=== PATIENT | male | born 1945 | race Caucasian/White ===

== ENCOUNTER 2016-05-20 08:00 | Outpatient (CLI) | payer MEDICARE, MEDICAID | END 2016-05-20 08:01 | disposition home or self-care (01) | DX: J44.9 Chronic obstructive pulmonary disease, unspecified (principal); Z79.899 Other long term (current) drug therapy; E53.8 Deficiency of other specified B group vitamins; I73.9 Peripheral vascular disease, unspecified ==

== ENCOUNTER 2017-08-01 08:00 | Outpatient (CLI) | payer MEDICARE, MEDICAID ==
[2017-08-01 13:29] LABS: ALBUMIN 4.2 g/dL (3.2-5.5); ALBUMIN/GLOBULIN RATIO 1.1 (1.0-2.2); BASOPHILS # (AUTO) 0.1 10^3/uL (0.0-0.1); BASOPHILS % (AUTO) 1.8 %; BILIRUBIN,TOTAL 0.7 mg/dL (0.2-1.0); CREATININE 0.6 mg/dL (0.6-1.2); EOSINOPHILS # (AUTO) 0.1 10^3/uL (0.0-0.7); HGB - HEMOGLOBIN 15.1 g/dL (14.0-18.0); LYMPHOCYTES # (AUTO) 1.8 10^3/uL (1.5-3.5); LYMPHOCYTES % (AUTO) 31.6 %; MEAN CORPUSCULAR HEMOGLOBIN 33.4 pg (27.0-31.0); MEAN CORPUSCULAR HGB CONC 34.5 g/dL (32.0-36.0); MEAN PLATELET VOLUME 8.2 fL (7.4-11.4); MONOCYTES # (AUTO) 0.4 10^3/uL (0.0-1.0); MONOCYTES % (AUTO) 7.6 %; NEUTROPHILS # (AUTO) 3.2 10^3/uL (1.5-6.6); PLT - PLATELET COUNT 314 10^3/uL (130-450); RED BLOOD COUNT 4.53 10^6/uL (4.70-6.10); RED CELL DISTRIBUTION WIDTH 13.2 % (12.0-15.0); TOTAL PROTEIN 8.2 g/dL (6.7-8.2); WHITE BLOOD COUNT 5.6 x10^3/uL (4.8-10.8)
== END 2017-08-01 08:01 ==
LOC: LAB.R 08:00
PROVIDERS: ATTEND Internal Medicine
DX: E53.8 Deficiency of other specified B group vitamins (principal); C82.90 Follicular lymphoma, unspecified, unspecified site; Z12.5 Encounter for screening for malignant neoplasm of prostate
CPT/HCPCS: 80053; 82607; 85025; G0103; 84153

== ENCOUNTER 2017-12-13 14:59 | Outpatient (CLI) | payer MEDICARE, MEDICAID ==
--- NOTE | 2017-12-13 17:51 | XRAY Report ---
Reason: BACK PAIN,LUMBAR W/RADICULOPATHY Procedure Date: 12/13/2017 Accession Number: [id number] / [id number] Procedure: XR - Thoracic Spine 2 View CPT Code: FULL RESULT: EXAM: THORACIC SPINE RADIOGRAPHY EXAM DATE: 12/13/2017 03:26 PM. CLINICAL HISTORY: No known injury. Radiating pain and numbness down left leg x1 week. Concurrent lumbar spine radiographs. COMPARISON: Chest radiographs 10/21/2014. TECHNIQUE: 2 views. FINDINGS: Alignment: Normal. No spondylolisthesis or scoliosis. Bones: No fractures or bone lesions. Upper thoracic spine not well-visualized on lateral view due to the patient's shoulders Disks: Minimal multilevel disk height loss and minimal anterior endplate lipping, most prominent in the mid thoracic spine, similar to prior. Soft Tissues: Pulmonary hyperexpansion is before suggests possible COPD. Otherwise unremarkable. IMPRESSION: 1. Minimal midthoracic degenerative spondylosis, similar to 2015 exam. 2. Pulmonary hyperexpansion suggests possible COPD as before. RADIA
--- NOTE | 2017-12-14 04:04 | XRAY Report ---
Reason: BACK PAIN Procedure Date: 12/13/2017 Accession Number: [id number] / [id number] Procedure: XR - Lumbar Spine 2 View CPT Code: FULL RESULT: EXAM: LUMBOSACRAL SPINE RADIOGRAPHY EXAM DATE: 12/13/2017 03:26 PM. CLINICAL HISTORY: No known injury. Pain with radiating pain and numbness down left leg x1 week. COMPARISONS: Concurrent thoracic spine radiographs.. TECHNIQUE: 3 views. FINDINGS: Alignment: Normal. No spondylolisthesis or scoliosis. Bones: 5 nonrib-bearing lumbar type vertebral bodies are present. L5 is transitional bilaterally. No fractures or bone lesions. Disks: Moderate disk height loss L4-L5 and L5-S1. Facets: Mild lower lumbar degenerative facet disease. Sacroiliac Joints: Unremarkable. Soft Tissues: Visualized bowel gas pattern is nonobstructive. Minimal vascular calcifications. IMPRESSION: No acute osseous abnormality or malalignment of the lumbar spine with transitional L5 and lower lumbar degenerative spondylosis. RADIA
== END 2017-12-13 15:00 | disposition home or self-care (01) ==
LOC: DI 14:59
PROVIDERS: ATTEND Physician Assistant Medical
DX: M51.34 Other intervertebral disc degeneration, thoracic region (principal); M47.896 Other spondylosis, lumbar region; M51.36 Other intervertebral disc degeneration, lumbar region
CPT/HCPCS: 72070; 72100

== ENCOUNTER 2018-01-05 14:44 | Outpatient (CLI) | payer MEDICARE, MEDICAID ==
--- NOTE | 2018-01-06 16:03 | MRI Report ---
Reason: BACK PAIN,LUMBAR WITH RADICULOPATHY L Procedure Date: 01/05/2018 Accession Number: [id number] / [id number] Procedure: MRI - Lumbar Spine W/O CPT Code: FULL RESULT: EXAM: MRI LUMBAR SPINE WITHOUT CONTRAST, LIMITED EXAM DATE: 01/05/2018 03:29 PM. CLINICAL HISTORY: Low back pain. Left-sided radiculopathy. COMPARISON: None. TECHNIQUE: The patient was not able to complete the exam due to severe back pain and claustrophobia. The exam is very limited and incomplete. Only sagittal T2 weighted images were obtained. FINDINGS: Spinal Canal: The conus terminates at L1-L2. The conus medullaris and cauda equina are unremarkable. Alignment: No scoliosis or spondylolisthesis. Bone Marrow: Five [id number] lumbar vertebral bodies are assumed. There is an approximately 1.1 x 1.2 cm T2 hyperintense lesion at the posterior right paramedian aspect of the L4 vertebral body. The anterior margin of the lesion appears to extend posteriorly into the anterior right paramedian aspect of the spinal canal. Disk Levels/Facets: T12-L1: Unremarkable. L1-L2: Unremarkable. L2-L3: Unremarkable. L3-L4: Small disk bulge. Bilateral facet arthropathy. Mild canal stenosis. Mild to moderate foraminal stenoses. L4-L5: Small disk bulge. There is a 1.2 x 0.6 cm T2 hyperintense extradural mass at the right posterolateral aspect of the spinal canal which may represent a synovial cyst arising from the right facet joint. Bilateral facet arthropathy. L5-S1: Degenerative endplate changes and moderate to severe disk space narrowing. Small disk bulge/osteophyte complex. Mild to moderate left and moderate right foraminal stenoses. Musculature: Normal. No edema or fatty atrophy. Other: The partially visualized retroperitoneum is unremarkable. IMPRESSION: 1. Limited and incomplete exam. 2. An approximately 1.1 x 1.2 cm T2 hyperintense lesion at the posterior right paramedian aspect of the L4 vertebral body which extends slightly posteriorly into the anterior right paramedian aspect of the spinal canal. Recommend further evaluation with a follow-up complete lumbar spine MRI without and with intravenous contrast or CT with intravenous contrast. 3. A 1.2 x 0.6 cm T2 hyperintense extradural mass at the right posterior lateral aspect of the spinal canal at the L4-L5 level. This may represent a synovial cyst arising from the right facet joint. Recommend further evaluation with a follow-up lumbar spine MRI without and with intravenous contrast or CT with intravenous contrast. 4. Multilevel degenerative disk changes. Moderate right and mild to moderate left foraminal stenoses and small disk bulge/osteophyte complex at L5-S1. Mild to moderate foraminal and mild canal stenoses at L3-L4. Comment: The following findings are so common in adults without low back pain that while we report their presence, they must be interpreted with caution and in the context of the clinical situation. (Reference Keikok et al, Spine 2001) Prevalence of findings in patients without low back pain: Disk degeneration (any evidence): 92% Disk desiccation/T2 signal loss: 83% Disk height loss: 56% Disk bulge: 64% Disk protrusion: 32% Annular tear/high intensity zone: 38% RADIA
== END 2018-01-05 14:45 | disposition home or self-care (01) ==
LOC: DI 14:44
PROVIDERS: ATTEND Physician Assistant Medical
DX: M51.16 Intervertebral disc disorders with radiculopathy, lumbar region (principal); M48.061 Spinal stenosis, lumbar region without neurogenic claudication; M25.78 Osteophyte, vertebrae
CPT/HCPCS: 72148

== ENCOUNTER 2018-01-10 16:15 | Outpatient (CLI) | payer MEDICARE, MEDICAID ==
[2018-01-10 18:09] LABS: CALCIUM 8.9 mg/dL (8.5-10.3); CREATININE 0.7 mg/dL (0.6-1.2)
== END 2018-01-10 16:16 | disposition home or self-care (01) ==
LOC: LAB.R 16:15
PROVIDERS: ATTEND Physician Assistant Medical
DX: Z79.899 Other long term (current) drug therapy (principal)
CPT/HCPCS: 80048

== ENCOUNTER 2019-07-11 16:29 | Outpatient (CLI) | payer MEDICARE, MEDICAID ==
[2019-07-11 17:13] LABS: BASOPHILS % (AUTO) 0.4 %; EOSINOPHILS # (AUTO) 0.2 10^3/uL (0.0-0.7); EOSINOPHILS % (AUTO) 3.4 %; HGB - HEMOGLOBIN 13.6 g/dL (14.0-18.0); LYMPHOCYTES # (AUTO) 1.9 10^3/uL (1.5-3.5); LYMPHOCYTES % (AUTO) 26.9 %; MEAN CORPUSCULAR HEMOGLOBIN 33.3 pg (27.0-31.0); MEAN CORPUSCULAR HGB CONC 33.7 g/dL (32.0-36.0); MEAN CORPUSCULAR VOLUME 98.8 fL (80.0-94.0); MEAN PLATELET VOLUME 9.4 fL (7.4-11.4); MONOCYTES # (AUTO) 0.6 10^3/uL (0.0-1.0); MONOCYTES % (AUTO) 8.7 %; NEUTROPHILS # (AUTO) 4.3 10^3/uL (1.5-6.6); NEUTROPHILS % (AUTO) 60.3 %; PLT - PLATELET COUNT 240 10^3/uL (130-450); RED BLOOD COUNT 4.09 10^6/uL (4.70-6.10); WHITE BLOOD COUNT 7.1 x10^3/uL (4.8-10.8)
[2019-07-11 17:18] LABS: CALCIUM 9.3 mg/dL (8.5-10.3); CREATININE 0.8 mg/dL (0.6-1.2)
--- NOTE | 2019-07-12 02:20 | XRAY Report ---
Reason: WHEEZING,COUGH Procedure Date: 07/11/2019 Accession Number: [id number] / [id number] Procedure: XR - Chest 2 View X-Ray CPT Code: 28109 Final Report FULL RESULT: EXAM: CHEST RADIOGRAPHY EXAM DATE: 07/11/2019 04:53 PM CLINICAL HISTORY: Wheezing, cough. COMPARISON: THORACIC SPINE 2 VIEW 12/13/2017 3:13 PM, CT THORAX W/ CONT 08/02/2012 10:19 AM. TECHNIQUE: 2 views. FINDINGS: Lungs/Pleura: Large volumes. No focal pneumonia or overt edema. No pneumothorax or effusion. Mediastinum: Within exam limitations, cardiomediastinal contour is normal. Other: None. IMPRESSION: Question COPD without acute process seen in the chest. RADIA
== END 2019-07-11 16:30 | disposition home or self-care (01) ==
LOC: DI 16:29
PROVIDERS: ATTEND Family Medicine
DX: R06.2 Wheezing (principal); R05 Cough
CPT/HCPCS: 36415; 71046; 80048; 85025

== ENCOUNTER 2020-08-12 09:10 | Outpatient (CLI) | payer MEDICARE, MEDICAID ==
[2020-08-12 09:47] LABS: BASOPHILS % (AUTO) 0.7 %; EOSINOPHILS # (AUTO) 0.1 10^3/uL (0.0-0.7); EOSINOPHILS % (AUTO) 1.9 %; HCT - HEMATOCRIT 37.8 % (42.0-52.0); HGB - HEMOGLOBIN 12.4 g/dL (14.0-18.0); LYMPHOCYTES # (AUTO) 1.3 10^3/uL (1.5-3.5); LYMPHOCYTES % (AUTO) 30.9 %; MEAN CORPUSCULAR HEMOGLOBIN 33.5 pg (27.0-31.0); MEAN CORPUSCULAR HGB CONC 32.8 g/dL (32.0-36.0); MEAN CORPUSCULAR VOLUME 102.2 fL (80.0-94.0); MEAN PLATELET VOLUME 8.9 fL (7.4-11.4); MONOCYTES # (AUTO) 0.4 10^3/uL (0.0-1.0); MONOCYTES % (AUTO) 8.9 %; NEUTROPHILS # (AUTO) 2.4 10^3/uL (1.5-6.6); NEUTROPHILS % (AUTO) 57.4 %; PLT - PLATELET COUNT 234 10^3/uL (130-450); RED CELL DISTRIBUTION WIDTH 13.6 % (12.0-15.0); WHITE BLOOD COUNT 4.2 x10^3/uL (4.8-10.8)
[2020-08-12 10:12] LABS: ALBUMIN 3.3 g/dL (3.2-5.5); ALBUMIN/GLOBULIN RATIO 0.5 (1.0-2.2); ALKALINE PHOSPHATASE 43 IU/L (42-121); ALT ALANINE AMINOTRANSFERASE 16 IU/L (10-60); AST ASPARTATE AMINOTRANSFERASE 23 IU/L (10-42); BILIRUBIN,TOTAL 0.8 mg/dL (0.2-1.0); BUN - BLOOD UREA NITROGEN 13 mg/dL (6-20); CALCIUM 9.6 mg/dL (8.5-10.3); CARBON DIOXIDE - CO2 26 mmol/L (21-32); CHLORIDE 100 mmol/L (101-111); CHOL/HDL RATIO 2.4 (<5.0); CHOLESTEROL 125 mg/dL; CREATININE 0.7 mg/dL (0.6-1.2); GFR - MDRD 110 (>89); GLUCOSE 109 mg/dL (70-100); HDL CHOLESTEROL 53 mg/dL; POTASSIUM 4.3 mmol/L (3.5-5.0); SODIUM 140 mmol/L (135-145); TOTAL PROTEIN 10.2 g/dL (6.7-8.2); TRIGLYCERIDES 31 mg/dL
[2020-08-12 14:15] LABS: THYROID STIMULATING HORMONE 2.58 uIU/mL (0.34-5.60)
== END 2020-08-12 09:11 | disposition home or self-care (01) ==
LOC: LAB 09:10
PROVIDERS: ATTEND Family Medicine
DX: J44.9 Chronic obstructive pulmonary disease, unspecified (principal); R97.20 Elevated prostate specific antigen [PSA]; C85.90 Non-Hodgkin lymphoma, unspecified, unspecified site; R06.09 Other forms of dyspnea
CPT/HCPCS: 36415; 80053; 80061; 83721; 84153; 84443; 85025

== ENCOUNTER 2021-05-14 14:48 | Outpatient (CLI) | payer MEDICARE, MEDICAID ==
--- NOTE | 2021-05-14 16:24 | XRAY Report ---
PROCEDURE: Chest 2 View X-Ray INDICATIONS: SMOKER,HEMOPTYSIS,COUGH,COPD TECHNIQUE: 2 views of the chest. COMPARISON: Chest radiographs 07/11/2019. FINDINGS: Surgical changes and devices: None. Lungs and pleura: No pleural effusions or pneumothorax. Lungs are mildly hyperexpanded. A possible m asslike opacity is seen at the right lung base on the frontal view that was not present on the prior radiographs from 07/11/2019. This finding is not well-visualized on the lateral view and may be second genevieve to superimposed structures. Mediastinum: Mediastinal contours are normal. Heart size is normal. Bones and chest wall: No suspicious bony abnormalities. Soft tissues appear unremarkable. IMPRESSION: 1.Possible new masslike opacity at the right lung base, which is not definitely confirmed on the late ral view. Consider chest CT for further evaluation. 2.Mildly hyperexpanded lungs can be seen in the setting of COPD. Reviewed by: Erich Muñoz MD on 05/14/2021 4:22 PM PST Approved by: Erich Muñoz MD on 05/14/2021 4:22 PM PST Station ID: [id number]
== END 2021-05-14 14:49 | disposition home or self-care (01) ==
LOC: DI 14:48
PROVIDERS: ATTEND Nurse Practitioner Family
DX: R05.9 Cough, unspecified (principal); J44.9 Chronic obstructive pulmonary disease, unspecified; R04.2 Hemoptysis; F17.200 Nicotine dependence, unspecified, uncomplicated; R91.8 Other nonspecific abnormal finding of lung field

== ENCOUNTER 2021-06-16 14:35 | Outpatient (CLI) | payer MEDICARE, MEDICAID ==
--- NOTE | 2021-06-16 18:16 | CT Report ---
PROCEDURE: CHEST WO INDICATIONS: HEMOPTYSIS, ABN CHEST RADIOGRAPH TECHNIQUE: Noncontrast 1mm axial images were acquired from the pulmonary apices to the posterior costophrenic an gles. Axial 5 mm soft tissue kernel reconstructions were performed as well as 8 mm axial MIP and cor onal and sagittal 5 mm reformations. For radiation dose reduction, the following was used: automate d exposure control, adjustment of mA and/or kV according to patient size. COMPARISON: Chest radiographs dated 05/14/2021 and 07/11/2019 FINDINGS: Image quality: Excellent. Lungs and pleura: Corresponding with radiographic findings in the right lung base, there is an irregu lar consolidation/mass measuring 3.0 x 1.8 cm in axial transverse dimension (image 258/series 4). The re is apparent crowding of airways within this consolidation. This abuts the right major fissure. Add itional 8 mm nodule is seen over the medial aspect of the right middle lobe disease imaged to 81/seri es 4). No pleural effusions or pneumothorax. Central and peripheral airways are patent and normal in caliber. Mediastinum: Heart size is normal. No pericardial effusion. There is moderate mediastinal adenopath y. Prominent right hilar lymph nodes. Mild aneurysmal dilatation of the ascending aorta measuring lucy roximately 5 cm in diameter mild atherosclerotic calcifications of the thoracic aorta. Esophagus is normal in caliber. No hiatal hernia. Bones and chest wall: No suspicious bony lesions. No vertebral body compression fractures. Extensiv e bilateral axillary adenopathy. There are several prominent supraclavicular lymph nodes. The thyroid is normal in size and there are no incidental findings. Abdomen: Visualized upper abdominal solid organs and bowel loops appear normal in the absence of con trast. IMPRESSION: 1. Irregular right lower lobe consolidation/mass with apparent crowding of the traversing airways thr ough it. This measures approximately 3.0 x 1.8 cm in size. Findings may explain patient's history of hemoptysis. Although this may represent an acute infectious process, a lung neoplasm not excluded giv en presence of moderate mediastinal adenopathy and prominent right hilar lymph nodes. There are also extensive enlarged bilateral axillary lymph nodes as well as prominent supraclavicular lymph nodes. R ecommend further evaluation with contrast-enhanced CT of the neck to exclude possible head/neck neopl asm. Additionally, recommend correlating for clinical symptoms of infection. If there are findings of infection, recommend short interval follow-up CT in 3 months to document stability versus resolution . 2. Consider sonographic evaluation of axillary lymphadenopathy to better characterize their morpholog y. CLINICAL RECOMMENDATION STATEMENTS: In patients <35 years with an ITN detected on CT, MRI, or extrathyroidal ultrasound, the Committee re commends further evaluation with dedicated thyroid ultrasound if the nodule is "e1 cm and has no susp icious imaging features, and if the patient has normal life expectancy. In patients "e35 years with an ITN detected on CT, MRI, or extrathyroidal ultrasound, the Committee r ecommends further evaluation with dedicated thyroid ultrasound if the nodule is "e1.5 cm and has no s uspicious imaging features, and if the patient has normal life expectancy. (ACR, 2014) Reviewed by: Alan Hernández MD on 06/16/2021 5:15 PM AKST Approved by: Alan Hernández MD on 06/16/2021 5:15 PM AK Station ID: [id number]
== END 2021-06-16 14:36 | disposition home or self-care (01) ==
LOC: DI 14:35
PROVIDERS: ATTEND Nurse Practitioner Family
DX: R91.8 Other nonspecific abnormal finding of lung field (principal); R04.2 Hemoptysis; R59.0 Localized enlarged lymph nodes

== ENCOUNTER 2021-07-08 13:38 | Outpatient (CLI) | payer MEDICARE, MEDICAID ==
[~2021-07-08 13:38] MED LIST: LIDOCAINE-MPF 1% 10 ML AMP ONE
[2021-07-08] MEDS ORDERED: LIDOCAINE-MPF 1% 10 ML AMP SUBQ ONE (15:26)
--- NOTE | 2021-07-08 16:06 | Ultrasound Report ---
PROCEDURE: Needle Bx Lymph Node INDICATIONS: ABNML CT, AXILLARY LYMPHADENOPATHY TECHNIQUE: The indications, alternatives, benefits, risks, and complications of the procedure were e xplained to the patient. Written informed consent was obtained and placed in the chart. Real-time sonography was utilized to choose the site for percutaneous lymph node sampling. The skin was prepped and draped in the usual sterile fashion. 1% lidocaine was infiltrated down to the site o f interest. Serial hypodermic needles were then advanced into the site of interest under direct sono graphic visualization, and serial needle aspirates were obtained. Samples were put in formalin as we ll as lymphoma prep. The needles were then withdrawn; a bandage was applied to the procedure site. COMPARISON: CT chest 06/16/2021 FINDINGS: Sample site(s): Left axilla Needle: 18-gauge Number of passes: 8 Medications: 1% lidocaine for local anaesthesia. Complications: None. IMPRESSION: Successful ultrasound-guided left axillary lymph node fine needle aspiration, with cytology results p ending. Reviewed by: Dede Scott MD on 07/08/2021 4:04 PM PDT Approved by: Dede Scott MD on 07/08/2021 4:04 PM PDT Station ID: [id number]
== END 2021-07-08 13:39 | disposition home or self-care (01) ==
LOC: DI 13:38
PROVIDERS: ATTEND Nurse Practitioner Family
DX: C82.04 Follicular lymphoma grade I, lymph nodes of axilla and upper limb (principal); C82.14 Follicular lymphoma grade II, lymph nodes of axilla and upper limb
CPT/HCPCS: 38505

== ENCOUNTER 2021-07-22 13:22 | Emergency (ER) | payer MEDICARE, MEDICAID ==
--- NOTE | 2021-07-22 13:32 | ED Physician Documentation ---
PD HPI HEENT - Stated complaint Stated Complaint: BLOODY NOSE - Chief complaint Chief Complaint: Heent - Additional information Additional information: Patient is 76-year-old male presenting to the emergency department with 2-week history of recurrent nosebleeds. Reports has been having frequent nosebleeds since coming back from [place] on Vacation 2 Weeks Ago. Denies Blood Thinning Medications. Has Seen His Primary Care Doctor and States That He Had One Area of Bleeding Cauterized. States That He Woke This Morning, Coughed up a Large Blood Clot and Has Had Intermittent Bleeding throughout the Day. Bleeding Did Cease a Few Hours Ago. He Denies Frequent Nosebleeds, Trauma to the Nose,States is not using any nasal sprays at this time. Review of Systems Ten Systems: 10 systems reviewed and negative Constitutional: denies: Fever Eyes: denies: Loss of vision Ears: denies: Loss of hearing Nose: reports: Epistaxis Throat: denies: Dental pain / toothache Cardiac: denies: Chest pain / pressure Respiratory: denies: Dyspnea GI: denies: Abdominal Pain : denies: Dysuria Skin: denies: Rash Musculoskeletal: denies: Neck pain PD PAST MEDICAL HISTORY - Past Medical History Cardiovascular: Other Psych: Other - Present Medications Home Medications: Ambulatory Orders Medication Instructions Recorded Confirmed Oxymetazoline HCl [Afrin] 15 ml NS Q4HR #120 ml 07/22/21 - Allergies Allergies/Adverse Reactions: Allergies Allergy/AdvReac Type Severity Reaction Status Date / Time No Known Drug Allergies Allergy Verified 07/22/21 13:25 - Social History Smoking Status: Former smoker PD ED PE NORMAL - Vitals Vital signs reviewed: Yes - General General: Alert and oriented X 3 - HEENT HEENT: Atraumatic, PERRL, EOMI, Ears normal, Moist mucous membranes, Pharynx benign, Other (No bleeding in the posterior oropharynx, There is dried blood along the left nare. No active bleeding appreciated.) - Neck Neck: Supple, no meningeal sign - Respiratory Respiratory: No respiratory distress, Clear bilaterally - Abdomen Abdomen: Normal bowel sounds, Non distended - Male Male : Deferred - Rectal Rectal: Deferred Results - Vitals Vitals: Vital Signs - 24 hr 07/22/21 13:25 Temperature 36.5 C Heart Rate 90 Respiratory 16 Rate Blood Pressure 123/58 L O2 Saturation 96 Oxygen O2 Source Room air PD MEDICAL DECISION MAKING - ED course Complexity details: d/w patient ED course: Patient is 76-year-old male presenting to the emergency department with 2-week history of recurrent nosebleeds. Afebrile, hemodynamic stable on arrival to the emergency department. He denied blood thinning medications. Physical exam demonstrated dried blood along his left nare without any indications of active bleeding. He does report that he is followed with primary care but has not been referred to ears nose and throat as this time. I will discharge him with a prescription for Afrin and a nasal clip. I did discuss strategies including the use of Afrin and continuous pressure in order to manage nosebleeds at home until he has an opportunity to follow-up with ENT. Otherwise clear return precautions and follow-up instructions given prior to discharge.
[2021-07-22 13:40] VITALS: BP 123/58
== END 2021-07-22 15:55 | disposition home or self-care (01) ==
LOC: ED 13:22
DX: R04.0 Epistaxis (principal)
CPT/HCPCS: 99282

== ENCOUNTER 2021-09-28 10:27 | Day surgery (SDC) | payer MEDICARE, MEDICAID ==
[~2021-09-28 10:27] MED LIST changes: -LIDOCAINE-MPF 1% 10 ML AMP ONE; +LIDOCAINE-MPF 2% 5 ML VIAL ONE; +MIDAZOLAM 2 MG/2 ML VIAL ONE; +PROPOFOL 200 MG/20 ML VIAL IVP ONE; +fentaNYL 100 MCG/2 ML VIAL ONE
[2021-09-28] MEDS ORDERED: BUPIVACAINE 0.5% PF 30 ML VIAL ONE (10:42)
[2021-09-28] MEDS ORDERED: LIDOCAINE 2%-EPI 1:100000 20 ML MDV ONE (10:42)
[2021-09-28] MEDS ORDERED: CEFAZOLIN SODIUM IN 0.9 % NACL 2 GM/50 ML BAG IV ONE (10:47)
--- NOTE | 2021-09-28 10:49 | ANESTHESIA ---
Pre-Anesthesia VS, & Labs - Diagnosis B-cell lymphoma - Procedure port a cath placement Height: 6 ft 2 in - NPO >8 hours - Lab Results Lab results reviewed: Yes Home Medications and Allergies Allergies/Adverse Reactions: Allergies Allergy/AdvReac Type Severity Reaction Status Date / Time No Known Drug Allergies Allergy Verified 09/25/21 12:03 Anes History & Medical History - Anesthetic History Anesthesia Complications: reports: No previous complications Family history of Anesthesia Complications: Denies Family history of Malignant Hyperthermia: Denies - Medical History Cardiovascular: reports: None Pulmonary: reports: Shortness of breath Gastrointestinal: reports: None Urinary: reports: None Musculoskeletal: reports: Chronic back pain Endocrine/Autoimmune: reports: None Smoking Status: Never smoker Psychosocial: reports: Alcohol, Cannabis History of Cancer?: Yes - Surgical History Eyes Ears Nose Throat (EENT): reports: Other Orthopedic: reports: Other Exam General: Alert, Oriented x3, Cooperative Dental: WNL Mouth Openin Fingerbreadth (gould) Neck Mobility: Normal Mallampati classification: II Thyromental Distance: 4-6 cm Respiratory: Lungs clear, Normal breath sounds, No respiratory distress Cardiovascular: Regular rate Neurological: Normal speech Mental/Cognitive Status: Alert/Oriented X3, Normal for patient Cognitive Status: Within normal limits Plan Anesthesia Type: MAC, Total IV Consent for Procedure(s) Verified and Reviewed: Yes Code Status: Attempt Resuscitation ASA classification: 3-Severe systemic disease Is this case an emergency?: No
[2021-09-28] MEDS ORDERED: LACTATED RINGERS 1,000 ML IV ONE (10:50)
[2021-09-28] MEDS ORDERED: PROPOFOL 200 MG/20 ML VIAL IVP ONE (11:14)
[2021-09-28] MEDS ORDERED: LIDOCAINE 2%-EPI 1:100000 20 ML MDV SUBQ ONE ×2 (11:46)
[2021-09-28] MEDS ORDERED: BUPIVACAINE 0.5% PF 30 ML VIAL INFIL ONE (11:47)
[2021-09-28] MEDS ORDERED: BUPIVACAINE 0.5% PF 30 ML VIAL SUBQ ONE (11:47)
[2021-09-28] MEDS ORDERED: LACTATED RINGERS 400 ML IV ONE (11:59)
[2021-09-28 12:24] VITALS: BP 123/72
--- NOTE | 2021-09-28 12:52 | XRAY Report ---
PROCEDURE: Post Port Placement 1V CXR INDICATIONS: post placement, left upper chest TECHNIQUE: One view of the chest was acquired. COMPARISON: 08/24/2021 FINDINGS: Surgical changes and devices: Left chest wall central venous port catheter. Lungs and pleura: No pleural effusions or pneumothorax. Lungs are clear. Mediastinum: Mediastinal contours appear normal. Heart size is normal. Bones and chest wall: No suspicious bony lesions. Overlying soft tissues appear unremarkable. IMPRESSION: No acute cardiopulmonary process demonstrated radiographically. Reviewed by: Eren Serrato MD on 09/28/2021 12:51 PM PDT Approved by: Eren Serrato MD on 09/28/2021 12:51 PM PDT Station ID: [id number]
--- NOTE | 2021-09-28 13:34 | XRAY Report ---
PROCEDURE: OR Port-A-Cath INDICATIONS: Lymphoma TECHNIQUE: 1 intraoperative image of the chest. COMPARISON: Subsequent CXR. FINDINGS: Central venous catheter projecting from the left chest. IMPRESSION: Image guidance provided for port placement. Reviewed by: Jose Cedeno MD on 09/28/2021 1:33 PM PDT Approved by: Jose Cedeno MD on 09/28/2021 1:33 PM PDT Station ID: [id number]
--- NOTE | 2021-09-28 15:38 | ANESTHESIA POST OP EVALUATION ---
Anesthesia Post Eval - Post Anesthesia Eval Vitals: Last Vital Signs Temp 36.1 C L 09/28/21 12:15 Pulse 54 L 09/28/21 12:15 Resp 16 09/28/21 12:15 BP 123/72 09/28/21 12:15 Pulse Ox 96 09/28/21 12:15 CV Function Including HR & BP: Stable Pain Control: Satisfactory Nausea & Vomiting: Negative Mental Status: Baseline Respiratory Status: Airway Patent Hydration Status: Satisfactory Anesthesia Complications: None
--- NOTE | 2021-09-30 08:45 | OPERATIVE REPORT ---
Operative Report - General Procedure Date: 09/28/21 Planned Procedure: Left subclavian port placement for chemotherapy Pre-Op Diagnosis: Lymphoma Procedure Performed: Left subclavian PowerPort placement for chemotherapy Post Op Diagnosis: Lymphoma - Procedure Note Primary Surgeon: Sarah Anesthesia Provider: Izaiah Anesthesia Technique: Local, MAC Pathology: None Estimated Blood Loss (mL): 5 Findings: Port in good position in the SVC Complications: None apparent - Other Other Information/Narrative: After obtaining informed consent, the patient is brought to the operating room and placed in supine position on the operating table. Following successful induction of sedation with monitored anesthesia care and appropriate padding of all bony prominences, the left chest and neck were prepped and draped in the standard surgical fashion. A timeout was held per scope protocol. All elements of the surgical safety checklist were followed before, during, and after the procedure. Following infiltration with local anesthetic to create a field block, the left subclavian vein was accessed in the deltopectoral groove. The J-wire was gently placed into the vein. Fluoroscopy was used to confirm the position of the wire and in the subclavian vein. We anesthetized the existing healed scar in the area around it for placement of the port itself. An incision was created here a nd carried down through the skin and subcutaneous tissue. A pocket was created with blunt dissection. The port tubing was attached to the tunneling device and passed from the access site of the vein into the pocket. It was trimmed to an appropriate length and the port attached. The port was sewn into place in the pocket. The dilator and introducer were then passed over the J-wire that was in the subclavian vein. The J-wire and dilator were removed leaving only the introducer. The tubing was then passed through the introducer and the introducer cracked and removed per solar energy systems engineer's directions. The port was then checked for function and flushed and danelle easily. Additional local anesthetic was applied to the chest wall. The port pocket was closed with interrupted Vicryl sutures and Monocryl stitches were placed in both skin incision sites. All sponge, needle, and instrument counts were correct at the conclusion of the case. Chest x-ray in the postanesthesia care unit revealed the port in good position in the superior vena cava without evidence of pneumothorax.
== END 2021-09-28 10:28 | disposition home or self-care (01) ==
LOC: SDS 10:27
PROVIDERS: ATTEND Surgery
DX: C85.10 Unspecified B-cell lymphoma, unspecified site (principal); J44.9 Chronic obstructive pulmonary disease, unspecified; F17.200 Nicotine dependence, unspecified, uncomplicated
CPT/HCPCS: 36561; C1788; J0690; J7120

== ENCOUNTER 2021-12-22 14:32 | Emergency (ER) | payer MEDICARE, MEDICAID ==
--- NOTE | 2021-12-22 15:22 | ED Physician Documentation ---
PD HPI BACK PAIN - Stated complaint Stated Complaint: LUMBAR PX - Chief complaint Chief Complaint: Back Pain - History obtained from History obtained from: Patient - History of Present Illness Timing - onset: How many weeks ago (has had intermittent low back pain for months but more consistent for few weeks, and then abruptly worse the past few days without apparent injury. 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 Was in pain for back so sent to ER.) Timing - details: Gradual onset (with significant worsening the past few days.), Still present Location: Lower, Right Quality: Pain, Spasm, Aching Associated symptoms: No: Fever, Weakness, Numbness, Incontinent of urine Worsened by: Movement. No: Palpation Contributing factors: Twisting, Cancer (axillary b-cell lymphoma). No: Trauma Similar symptoms before: No diagnosis (he has presumed lumbar disc problem, but no prior imaging/eval.) Recently seen: Clinic Review of Systems Constitutional: denies: Fever, Chills Cardiac: denies: Chest pain / pressure Respiratory: denies: Dyspnea GI: denies: Abdominal Pain, Nausea, Vomiting, Diarrhea : denies: Incontinent Skin: denies: Rash, Lesions Neurologic: denies: Focal weakness, Numbness PD PAST MEDICAL HISTORY - Past Medical History Cardiovascular: None Respiratory: Shortness of breath Neuro: None Endocrine/Autoimmune: None GI: None : None HEENT: Chronic vision loss Psych: Anxiety Musculoskeletal: Chronic back pain Other Past Medical History: lymphoma - Past Surgical History Ortho: Other HEENT: Other - Present Medications Home Medications: Ambulatory Orders Medication Instructions Recorded Confirmed Oxymetazoline HCl [Afrin] 15 ml NS Q4HR #120 ml 07/22/21 11/23/21 Ondansetron Odt [Zofran Odt] 4 mg TL Q6H PRN #30 tab 09/21/21 11/23/21 Prochlorperazine Maleate 10 mg PO Q6HR PRN #30 tablet 09/21/21 11/23/21 oxyCODONE [Roxicodone] 5 mg PO Q4-6H PRN #20 tablet 09/28/21 11/23/21 dexAMETHasone [Decadron] 4 mg PO DAILY #7 tablet 12/22/21 oxyCODONE [Roxicodone] 5 mg PO Q4H PRN #20 tablet 12/22/21 tiZANidine [Zanaflex] 4 mg PO Q8H PRN #25 tablet 12/22/21 - Allergies Allergies/Adverse Reactions: Allergies Allergy/AdvReac Type Severity Reaction Status Date / Time No Known Drug Allergies Allergy Verified 12/22/21 14:44 - Social History Smoking Status: Never smoker PD ED PE NORMAL - Vitals Vital signs reviewed: Yes - General General: Alert and oriented X 3, Well developed/nourished, Other (appears in pain and wanting to lie flat as sitting more painful. ) - Cardiac Cardiac: RRR, No murmur - Respiratory Respiratory: Clear bilaterally - Abdomen Abdomen: Soft, Non tender, Non distended - Back Back: No spinal TTP (tender right lumbar muscles but not focal trigger point per se. No redness/rash. ) - Derm Derm: Normal color, Warm and dry - Extremities Extremities: No edema, No calf tenderness / cord - Neuro Neuro: Alert and oriented X 3, No motor deficit, No sensory deficit, Other (normal patellar reflexes) Results - Vitals Vitals: Oxygen O2 Source Room air - Rads (name of study) lumbar CT Radiology: Prelim report reviewed (no fractures. degenerative changes, particularly L4/5.), See rad report PD MEDICAL DECISION MAKING - ED course Complexity details: reviewed results, re-evaluated patient (improved some with meds here. ), considered differential (low back pain with sciatic radiation but no numbness/weakness. Red flags of duration and acute exac along with age. Got CT to evaluate. ), d/w patient ED course: He came from [facility] after chemo infusion with Port still accessed. Given pain meds (had not gotten any in [facility]). Departure - Departure Disposition: 01 Home, Self Care Clinical Impression: Acute lumbar back pain Qualifiers: Back pain laterality: right Sciatica presence: with sciatica Sciatica laterality: sciatica of right side Qualified Code(s): M54.41 - Lumbago with sciatica, right side Condition: Stable Record reviewed to determine appropriate education?: Yes Follow-Up: Logan Cook MD [Primary Care Provider] - Mario Huizar MD [Provider Admit Priv/Credential] - Prescriptions: dexAMETHasone [Decadron] 4 mg PO DAILY #7 tablet oxyCODONE [Roxicodone] 5 mg PO Q4H PRN #20 tablet PRN Reason: Pain tiZANidine [Zanaflex] 4 mg PO Q8H PRN #25 tablet PRN Reason: Spasms Comments: Heat and gentle stretching for the low back to reduce spasm and stiffness. Massage or chiropractic or such is okay as well. Decadron steroid daily for another week to help with inflammation. Tizanidine muscle relaxant for spasms and stiffness. Your CT scan showed some degenerative changes at the L4-5 level. It did not note a considerable disc protrusion at that level but a mild 1. No signs of bony abnormality such as bone lesions or compression fractures. To this add acetaminophen 5 mg 4 times daily regularly for the next week and then oxycodone every 6 hours if needed for worse pain. I sent your prescriptions to [facility] in [place]. I am prescribing a short course of narcotic pain medication for you. These are potentially dangerous and addictive medications that should be used carefully. These medications may constipate you. Take an gzmh-ery-[id number] stool softener such as docusate twice daily with plenty of water while taking these medications. If you go 24 hours without a bowel movement, take uxrq-gyg-opurhwi MiraLAX, per package instructions. Do not drink or drive while taking these medications. If you received narcotic or sedating medications while in the emergency department do not drive for 24 hours. Store this medication in a safe, secure place and out of reach of children. It is a violation of federal law to give or sell this medication to another person or to use in a manner other than prescribed. The ED will not refill narcotic prescriptions, including prescriptions lost or stolen. You can dispose of unwanted medications at the [facility]'s office or at several pharmacies such as [facility]. Discharge Date/Time: 12/22/21 18:05
[2021-12-22] MEDS ORDERED: HYDROmorphone 1 MG/ML CARPUJECT IVP STA ×2 (15:47→17:45)
[2021-12-22] MEDS ORDERED: methocarbamoL 500 MG TABLET PO STA (15:48)
[2021-12-22] MEDS ORDERED: DEXAMETHASONE 10 MG/ML VIAL IVP STA (15:48)
--- NOTE | 2021-12-22 16:53 | CT Report ---
PROCEDURE: LUMBAR SPINE WO INDICATIONS: lumbar pain for 2-3 weeks. TECHNIQUE: Noncontrast 3 mm thick sections acquired from the T12 level to the sacrum. Sagittal and coronal refo rmats were constructed. For radiation dose reduction, the following was used: automated exposure co ntrol, adjustment of mA and/or kV according to patient size. COMPARISON: None. FINDINGS: Image quality: Excellent. Bones: There is trace L4 on L5 retrolisthesis and intervertebral disc space narrowing and endplate sc lerosis. There is otherwise normal bony alignment. No acute fracture or dislocation. No compression d eformities. Radiolucency with sclerotic margins within the posterior aspect of the L3 vertebral body was likely present on the comparison plain film from 12/13/2017 and is unchanged from the CT dated 08/24. Suspicious bony lesions. Soft tissues: No retroperitoneal masses or hematomas. Visualized aorta is normal in caliber. There are scattered atheromatous calcifications throughout the abdominal aorta. Scattered diverticular out pouchings are visualized throughout the sigmoid colon. No mucosal thickening or pericolonic fat stran ding to suggest acute diverticulitis. The bowel is incompletely visualized. The appendix is likely th in-walled and gas-filled and partially visualized. IMPRESSION: 1. Degenerative change at L4-5. No acute compression deformities of the lumbar spine. 2. No acute intra-abdominal findings where visualized. Diverticulosis. No acute diverticulitis. Proba ble normal appendix where visualized. Reviewed by: Jacinta Knutson MD on 12/22/2021 4:51 PM PDT Approved by: Jacinta Knutson MD on 12/22/2021 4:51 PM PDT Station ID: [id number]
[2021-12-22 18:06] VITALS: BP 148/72
== END 2021-12-22 18:05 | disposition home or self-care (01) ==
LOC: ED 14:32
DX: M54.41 Lumbago with sciatica, right side (principal)
CPT/HCPCS: 72131; 96374; 96375; 96376; 99282; 99284; A9270; J1170

== ENCOUNTER 2023-10-19 09:32 | Outpatient (CLI) | payer MEDICARE, MEDICAID | END 2023-10-19 09:33 | disposition home or self-care (01) | LOC: DI 09:32 | PROVIDERS: ATTEND Internal Medicine | DX: I71.23 Aneurysm of the descending thoracic aorta, without rupture (principal); I35.2 Nonrheumatic aortic (valve) stenosis with insufficiency | CPT/HCPCS: 93307 ==

== ENCOUNTER 2025-02-18 09:13 | Inpatient (IN) ==
--- OUTSIDE RECORDS SUMMARY | 2025-02-18 09:42 | EXTERNAL MEDICAL SUMMARY RPT | Continuity of Care Document ---
Author Organization [facility] Address [address] [place] [id number] Phone Problems date description facility 2025-01-23 11:58 Monoclonal gammopathy [facility] 2025-01-24 00:04 Mon[facility] g[facility]opathy [facility] 2025-01-25 14:37 Follicular lymphoma grade I, lymph nodes of multiple sites [facility] 2025-01-25 14:37 Follicular lymphoma, unspecifie d, unspecified site [facility] 2025-01-25 14:37 Monoclonal gammopathy [facility] 2025-01-25 14:39 Follicular lymphoma grade I, lymph nodes of multiple sites [facility] 2025-01-25 14:39 Follicular lymphoma, unspecifie d, unspecified site [facility] 2025-01-25 14:39 Monoclonal gammopathy [facility] 2025-01-29 13:17 Follicular lymphoma grade I, lymph nodes of multiple sites [facility] 2025-01-29 13:17 Monoclonal gammopathy [facility] 2025-01-29 13:17 Aneurysm of the ascending aorta , without rupture [facility] 2025-01-29 13:17 Encounter for genera l adult medical examination without abnormal findings [facility] 2025-01-30 13:30 Follicular lymphoma grade I, lymph nodes of multiple sites [facility] 2025-01-30 13:30 Monoclonal gammopathy [facility] 2025-01-30 13:30 Aneurysm of the ascending aorta , without rupture [facility] 2025-01-30 13:30 Encounter for genera l adult medical examination without abnormal findings [facility] 2025-02-15 14:10 Follicular lymphoma grade I, lymph nodes of multiple sites [facility] 2025-02-15 14:10 Follicular lymphoma, unspecifie d, unspecified site [facility] 2025-02-15 14:10 Monoclonal gammopathy [facility] Results/Labs test date facility value unit notes Result panel 1 NUCLEATED RED BLOOD CELLS AUTO 2025-01-23 11:58 [facility] 0.0 /100wbc (missing) BASOPHILS # (AUTO) 2025-01-23 11:58 [facility] 0.0 10 3/ul (missing) EOSINOPHILS # (AUTO) 2025-01-23 11:58 [facility] 0.0 10 3/ul (missing) NRBC ABSOLUTE COUNT (AUTO) 2025-01-23 11:58 [facility] 0 .00 x10 3/ul (missing) MONOCYTES # (AUTO) 2025-01-23 11:58 [facility] 0.4 10 3/ul (missing) LYMPHOCYTES # (AUTO) 2025-01-23 11:58 [facility] 0.7 10 3/ul (missing) RED CELL DISTRIBUTION WIDTH 2025-01-23 11:58 [facility] 12.7 % (missing) HGB - HEMOGLOBIN 2025-01-23 11:58 [facility] 13.2 g /dl (missing) PLT - PLATELET COUNT 2025-01-23 11:58 [facility] 208 10 3/ul (missing) MEAN CORPUSCULAR HEMOGLOBIN 2025-01-23 11:58 [facility] 31.6 pg (missing) MEAN CORPUSCULAR HGB CONC 2025-01-23 11:58 [facility] 32 .2 g/dl (missing) NEUTROPHILS # (AUTO) 2025-01-23 11:58 [facility] 4.1 10 3/ul (missing) RED BLOOD COUNT 2025-01-23 11:58 [facility] 4.18 10 6/ul (missing) HCT - HEMATOCRIT 2025-01-23 11:58 [facility] 41.0 % (missing) WHITE BLOOD COUNT 2025-01-23 11:58 [facility] 5.2 x10 3/ul (missing) MEAN PLATELET VOLUME 2025-01-23 11:58 [facility] 8.8 fl (missing) MEAN CORPUSCULAR VOLUME 2025-01-23 11:58 [facility] 98.1 fl (missing) Result panel 2 [id number] 2025-01-23 12:10 [facility] 0.2 g/dl (missing) KAPPA/LAMBDA RATIO SERUM 2025-01-23 12:10 [facility] 0.30 (missing) Performed at: [facility] [address], [place], [place] [id number] Glass Curvature Gauger: Shannon Burroughs MD, Phone: [phone] [id number] 2025-01-23 12:10 [facility] 0.6 g/dl (missing) BETA GLOBULIN 2025-01-23 12:10 [facility] 0.6 g/dl (missing) BILIRUBIN,TOTAL 2025-01-23 12:10 [email or web address] 0.6 mg/dl As of October 2022 testing method has changed, this may include reference ranges. CREATININE 2025-01-23 12:10 [facility] 0.7 mg/dl As of October 2022 testing method has changed, this may include reference ranges. M-SPIKE 2025-01-23 12:10 [facility] 1.0 g/dl (missing) A/G RATIO 2025-01-23 12:10 [facility] 1.4 (missing) (missing) ALBUMIN/GLOBULIN RATIO 2025-01-23 12:10 [facility] 1.4 (missing) (missing) GAMMA GLOBULIN 2025-01-23 12:10 [facility] 1.5 g/dl (missing) CHLORIDE 2025-01-23 12:10 [facility] 101 mmol/l As of October 2022 testing method has changed, this may include reference ranges. GFR - MDRD 2025-01-23 12:10 [facility] 109 (missing) The IDMS-traceable MDRD Study Equation has been validated extensively in and populations between the ages of 18 and 70 with impaired kidney function (eGFR < 60 mL/min/1.73m2) and has shown good performance for patients with all common causes of kidney disease. Although this equation has not been validated for patients older than 70, an MDRD-derived eGFR may still be a useful tool for providers caring for patients older than 70. References: http://www.nkdep.nih .gov/lab-evaluation/ gfr/creatinine-stand ardization, last updated June 2011. GLUCOSE 2025-01-23 12:10 [facility] 114 mg/dl As of October 2022 testing method has changed, this may include reference ranges. SODIUM 2025-01-23 12:10 [facility] 137 mmol/l (missing) IMMUNOGLOBULIN M (IGM) 2025-01-23 12:10 [facility] 1551 mg/dl Results confirmed on dilution. BUN - BLOOD UREA NITROGEN 2025-01-23 12:10 [facility] 16 mg/dl As of October 2022 testing method has changed, this may include reference ranges. GLOBULIN TOTAL 2025-01-23 12:10 [facility] 2.9 g/dl (missing) ALT ALANINE AMINOTRANSFERASE 2025-01-23 12:10 [facility] 21 iu/l As of October 2022 testing method has changed, this may include reference ranges. AST ASPARTATE AMINOTRANSFERASE 2025-01-23 12:10 [facility] 28 iu/l As of October 2022 testing method has changed, this may include reference ranges. LAMBDA FREE LT CHAINS SERUM 2025-01-23 12:10 [facility] 28.2 mg/l (missing) GLOBULIN 2025-01-23 12:10 [facility] 3.0 g/dl (missing) ALBUMIN 2025-01-23 12:10 [facility] 3.9 g/dl (missing) CARBON DIOXIDE - CO2 2025-01-23 12:10 [facility] 30 mmol/l As of October 2022 testing method has changed, this may include reference ranges. POTASSIUM 2025-01-23 12:10 [facility] 4.0 mmol/l As of October 2022 testing method has changed, this may include reference ranges. ALBUMIN 2025-01-23 12:10 [facility] 4.2 g/dl As of October 2022 testing method has changed, this may include reference ranges. IMMUNOGLOBULIN G (IGG) 2025-01-23 12:10 [facility] 472 mg/dl (missing) ANION GAP 2025-01-23 12:10 [facility] 6.0 (missing) (missing) PROTEIN TOTAL 2025-01-23 12:10 [facility] 6.8 g/dl (missing) ALKALINE PHOSPHATASE 2025-01-23 12:10 [facility] 63 iu/l As of October 2022 testing method has changed, this may include reference ranges. TOTAL PROTEIN 2025-01-23 12:10 [facility] 7.2 g/dl As of October 2022 testing method has changed, this may include reference ranges. KAPPA FREE LT CHAINS SERUM 2025-01-23 12:10 [facility] 8.4 mg/l (missing) IMMUNOGLOBULIN A (IGA) 2025-01-23 12:10 [facility] 82 mg/dl (missing) CALCIUM 2025-01-23 12:10 [facility] 9.2 mg/dl As of October 2022 testing method has changed, this may include reference ranges. IMMUNOFIXATION SERUM 2025-01-23 12:10 [facility] Comment (missing) Immunofixation shows IgM monoclonal protein with lambda light chain specificity. PLEASE NOTE 2025-01-23 12:10 [facility] Comment (missing) Protein electrophoresis scan will follow via computer, mail, or lifeguard delivery. Performed at: [address], [place], [place] [id number] Glass Curvature Gauger: Erik Stiles MD, Phone: [phone] Performed at: [facility] [address] [facility] [address], [place], [place] [id number] Glass Curvature Gauger: Shannon Burroughs MD, Phone: [phone] Social History date description facility
--- NOTE | 2025-02-18 10:04 | ED Physician Documentation ---
PD HPI SKIN Stated complaint Stated Complaint: CHEST PORT, BLEEDING Chief complaint Chief Complaint: Wound History obtained from History obtained from: Patient Additional information Additional information: Patient comes to the emergency department chief complaint of pain, redness, swelling, and purulent drainage from his left chest Port-A-Cath site That started yesterday. He has had irritation and flareups of it on and off for the last months, but nothing like this. He states he has a history of lymphoma but has not been receiving chemotherapy or using the port regularly for the last year. He states the only time it gets used is when he goes to oncology and has his blood drawn, the most recent time of which was last week. He denies any fevers or unusual chills, though he states he has been "cold since I was born". He has had some joint aches for the last couple of days. He has not felt ill in any other way. The patient states that his oncologist had encouraged him to keep the port in for blood draws. No other complaints at this time. Meds/Allgy Home Medications Ambulatory Orders Medication Instructions Recorded Confirmed albuterol sulfate 90 mcg/actuation 2 puff inhalation Q 4-6H PRN 02/12/25 02/18/25 aerosol inhaler shortness of breath or wheez ing #8.5 grams fluticasone 250 mcg-salmeterol 50 1 inh inhalation BID #60 ea 02/13/25 02/18/25 mcg/dose blistr powdr for inhalation (Advair Diskus) Allergies Allergies Allergy/AdvReac Type Severity Reaction Status Date / Time No Known Drug Allergies Allergy Verified 11/07/24 15:38 PFSH Active Problems All Active Problems (Updated 02/18/25 @ 14:10 by Kavita Jimenez) Leukopenia (Acute) Neutropenia (Acute) COPD (chronic obstructive pulmonary disease) (Chronic) Cellulitis (Acute) Port-A-Cath in place (Acute) Infected venous access port (Acute) Emphysema lung (Chronic) Dental decay (Chronic) Ascending aortic aneurysm (Chronic) Healthcare maintenance (Chronic) Monoclonal gammopathy (Chronic) Follicular lymphoma (Chronic) Medical History Medical History (Updated 02/18/25 @ 14:10 by Kavita Jimenez) Port or reservoir infection Social History Social History (Updated 02/18/25 @ 10:21 by Denise Bernardo RN) Smoking Status: Current every day smoker Number of Years Smoked: 4 Do you dip or chew tobacco?: No Do you vape?: No Patient requests smoking cessation consult: No Initiate information on smoking cessation: No Living arrangement: At home Marital Status: Domestic Partner Living Condition: With family Support Person: Yes Relationship Notes: Ghazala/ "Bertha" is partner Level: Independent Do you feel safe in your home environment?: No History of physical, verbal, emotional, or financial abuse?: No ETOH Use: None Substance Use: cannabis (any form) Exam Exam Vital Signs: Vital Signs x48h Temp Pulse Resp BP Pulse Ox 02/18/25 11:50 66 18 121/74 97 02/18/25 09:19 36.2 C L 88 18 128/79 97 Constitutional normal general appearance and no apparent distress HENMT normocephalic, head/scalp atraumatic, external nose normal and oral mucous membranes normal Eyes EOMs intact bilaterally Neck/C-Spine visual inspection normal and supple Chest Port-A-Cath in place in left upper chest wall. Erythema noted with mild edema over the Port-A-Cath site and an approximately 4 cm radius around, especially inferiorly. No induration. Mild fluctuance around the edges of the Port-A-Cath. 1 to 2 cc of pus total expressed from a small draining site just superior to the Port-A-Cath. Palpation of the soft tissue around the edges of the Port-A-Cath as well as pressure applied to the Port-A-Cath itself results in drainage from the skin defect. Respiratory breath sounds equal bilaterally, normal respiratory effort and clear to auscultation bilaterally Cardiovascular normal heart rate noted, regular rhythm noted and no edema Gastrointestinal abdomen normal to inspection, abdomen soft to palpation, nontender to palpation and nondistended Genitourinary no CVA tenderness Extremities normal to inspection Neurology Alert, grossly intact Psychiatry mental status grossly normal Skin skin color normal Results Vitals Vitals: Vital Signs - 24 hr 02/18/25 09:19 02/18/25 11:50 Temperature 36.2 C L Temperature Source Temporal Artery Scan Pulse Rate 88 66 Respiratory Rate 18 18 Blood Pressure 128/79 121/74 O2 Saturation 97 97 O2 Source Room air Room air Pain Intensity 9 2 Oxygen O2 Source Room air Labs Labs: Microbiology 02/18/25 11:14 Body Fluid Culture - Preliminary Other - Abscess Laboratory Tests 02/18/25 02/18/25 10:12 11:36 WBC 2.1 L RBC 4.52 L Hgb 14.4 Hct 43.8 MCV 96.9 H MCH 31.9 H MCHC 32.9 RDW 12.1 Plt Count 232 MPV 9.3 Neut # (Auto) Not Reportable Lymph # (Auto) Not Reportable Frio # (Auto) Not Reportable Eos # (Auto) Not Reportable Baso # (Auto) Not Reportable Absolute Nucleated RBC Not Reportable Total Counted 100 Band Neuts % (Manual) 3 Abnorm Lymph % (Manual) 0 Nucleated RBC % Not Reportable Neutrophils # (Manual) 0.8 L Lymphocytes # (Manual) 0.7 L Monocytes # (Manual) 0.5 Eosinophils # (Manual) 0.1 Basophils # (Manual) 0.0 Differential Comment MANUAL DIFFERENTIAL WBC Morphology NORMAL APPEARANCE Platelet Estimate NORMAL (130-450,000) Platelet Morphology NORMAL APPEARANCE RBC Morph Micro Appear NORMAL APPEARANCE Sodium 139 Potassium 3.8 Chloride 101 Carbon Dioxide 28 Anion Gap 10.0 BUN 15 Creatinine 0.6 Estimated GFR (MDRD) 130 Glucose 105 H Calcium 9.2 Total Bilirubin 0.5 AST 17 ALT 19 Alkaline Phosphatase 69 Total Protein 8.1 Albumin 4.1 Globulin 4.0 Albumin/Globulin Ratio 1.0 Lipase 28 PD Medical Decision Making ED course Complexity details: reviewed old records, reviewed results, considered different ial and d/w patient ED course: The patient had some joint aches, but it was not clear if this was related to this Port-A-Cath site infection or not. He otherwise had no other systemic symptoms. He did have a small amount of pus expressible from around the site and certainly did appear to have a cellulitis. There was not a specific area to I&D, however. I did order blood cultures and a CBC and consulted with Dr. Anderson who was on-call for surgery, And she stated she would come and remove the Port-A-Cath in the emergency department. This was done and patient was started on IV vancomycin. I spoke with Dr. Eladio Anderson the hospitalist on-call and he did agree to admit the patient to his service for observation. Discharge Plan Discharge Patient Disposition: 66 [facility] DC/Xfer Condition: Serious Clinical Impression: Infected venous access port Qualifiers: Encounter type: initial encounter Qualified Code(s): T80.219A - Unspecified infection due to central venous catheter, initial encounter Interventions: ED Admission Assessment Last Done: 02/18/25 13:00
[2025-02-18 10:18] LABS: HCT - HEMATOCRIT 43.8 % (42.0-52.0); HGB - HEMOGLOBIN 14.4 g/dL (14.0-18.0); MEAN PLATELET VOLUME 9.3 fL (7.4-11.4); PLT - PLATELET COUNT 232 10^3/uL (130-450); RED CELL DISTRIBUTION WIDTH 12.1 % (12.0-15.0)
[2025-02-18 10:35] LABS: ABNORMAL LYMPHS % (MANUAL) 0 %; BASOPHILS # (MANUAL) 0.0 10^3/uL (0-0.1)
[2025-02-18 11:02] LABS: BAND NEUTROPHILS % (MANUAL) 3 %; BASOPHILS % (MANUAL) 1 %; EOSINOPHILS # (MANUAL) 0.1 10^3/uL (0-0.7); LYMPHOCYTES # (MANUAL) 0.7 10^3/uL (1.5-3.5); LYMPHOCYTES % (MANUAL) 34 %; MONOCYTES # (MANUAL) 0.5 10^3/uL (0.0-1.0); NEUTROPHILS # (MANUAL) 0.8 10^3/uL (1.5-6.6)
[2025-02-18 11:03] LABS: PLATELET ESTIMATE, MANUAL NORMAL (130-450,000) (NORMAL); PLATELET MORPHOLOGY NORMAL APPEARANCE (NORMAL); RBC MORPHOLOGY (MULTIPLE) NORMAL APPEARANCE (NORMAL); WBC MORPHOLOGY (MULTIPLE) NORMAL APPEARANCE (NORMAL)
[2025-02-18 11:59] LABS: ALT ALANINE AMINOTRANSFERASE 19.0 IU/L (10-60); AST ASPARTATE AMINOTRANSFERASE 17.0 IU/L (10-42); BUN - BLOOD UREA NITROGEN 15.0 mg/dL (6-20); CARBON DIOXIDE - CO2 28.0 mmol/L (21-32); CREATININE 0.6 mg/dL (0.6-1.3); GFR - MDRD 130.0 (>89)
--- NOTE | 2025-02-18 12:16 | HISTORY & PHYSICAL EXAMINATION ---
<Statement entered by Tanner Anderson, DO - 02/18/25 16:09> I was present with the medical student on the hospitalist service. I personally verified the history of present illness and performed the physical examination and medical decision making. I have verified the medical students documentation for this encounter and agree with the plan of care below. In addition this is a very pleasant 80-year-old gentleman who is remarkably healthy at baseline. He has a baseline history of COPD and a follicular lymphoma which he has not received treatment for since April of this year. He had an infected port in his left chest that has been causing pain for the last month. Surrounding erythema and irritation. It was pulled by general surgery in the ED and the resulting pocket was highly purulent with some granulation tissue in it implying that this has been brewing for some time. Given the extent of cellulitis surrounding his port site and the risk for systemic infection, he is being monitored vitally under observation for any systemic infection. Blood cultures were drawn in the ED and will be monitored. A aerobic and anaerobic cultures have been sent separately for his port site and the port tip. All things considered, the patient is doing remarkably well. He is not having any systemic symptoms at this time. Given his general stability, we will treat him with oral medications at this time, covering for MRSA given purulent cellulitis. Started on doxycycline 100 mg twice daily, empirically treating for 1 week. If he remains clinically stable on 02/19, he can discharge to complete oral antibiotics outpatient. Will continue to follow his cultures. Surgery still following, they will come in to change his dressing in the morning. He has an attendant leukopenia. His neutrophil count is 800. He is not severely neutropenic. Will continue to monitor with a CBC with differential in the morning. If his neutrophil count continues to decrease, he may need to be monitored further and we may have to discuss with oncology. He is not favoring. Not treating for neutropenic fever at this time. Patient was clear that he is DNR/DNI. He has a partner who is his surrogate decision maker. [place] Patient [place] currently completing a POLST as of this afternoon. Chief Complaint Chief Complaint Chief Complaint: Port site pain History of Present Illness Admitted From Admitted From:: ED History Obtained From Records Reviewed: [facility] History obtained from: EMR, Patient, ED doctor, Surgeon History of Present Illness HPI Comment/Other: Omari Langford is a 80 y/o male with history of follicular lymphoma s/p chemotherapy on maintenance rituximab and COPD, who is admitted for a suspected skin soft tissue infection at his L port site. He arrived to the ED for bleeding and pain around his Port site. Had the Port placed many years ago for treatment of his lymphoma. Had first noticed pain 3 weeks ago, but did not seek treatment. Has not received any antibiotics. Patient reports some relief of pain since the removal of port this morning. Denies any fevers or chills. No headaches, vision changes. No nausea or vomiting. He has otherwise been well without any cough, dyspnea. No chest pain or palpitations. He does endorse chronic low back/ sciatica pain that is not new. He has a few metal screws in his R ankle from many years back. Denies any other hardware or prosthetics. He is accompanied by his Ghazala, who he would like to name his POA. They would like to fill out a POLST form. Opts for DNR/DNI. He denies any alcohol use. Former tobacco smoker of many years. Everyday marijuana smoker. Meds/Allgy Home Medications Ambulatory Orders Medication Instructions Recorded Confirmed albuterol sulfate 90 mcg/actuation 2 puff inhalation Q 4-6H PRN 02/12/25 02/18/25 aerosol inhaler shortness of breath or wheez ing #8.5 grams fluticasone 250 mcg-salmeterol 50 1 inh inhalation BID #60 ea 02/13/25 02/18/25 mcg/dose blistr powdr for inhalation (Advair Diskus) ibuprofen 200 mg tablet (Advil) 200 mg PO TID PRN pain 02/18/25 02/18/25 Allergies Allergies Allergy/AdvReac Type Severity Reaction Status Date / Time No Known Drug Allergies Allergy Verified 11/07/24 15:38 PFSH Active Problems All Active Problems (Updated 02/18/25 @ 14:10 by Kavita Jimenez) Leukopenia (Acute) Neutropenia (Acute) COPD (chronic obstructive pulmonary disease) (Chronic) Cellulitis (Acute) Port-A-Cath in place (Acute) Infected venous access port (Acute) Emphysema lung (Chronic) Dental decay (Chronic) Ascending aortic aneurysm (Chronic) Healthcare maintenance (Chronic) Monoclonal gammopathy (Chronic) Follicular lymphoma (Chronic) Medical History Medical History (Updated 02/18/25 @ 14:10 by Kavita Jimenez) Port or reservoir infection Social History Social History (Updated 02/18/25 @ 10:21 by Denise Bernardo RN) Smoking Status: Current every day smoker Number of Years Smoked: 4 Do you dip or chew tobacco?: No Do you vape?: No Patient requests smoking cessation consult: No Initiate information on smoking cessation: No Living arrangement: At home Marital Status: Domestic Partner Living Condition: With family Support Person: Yes Relationship Notes: Ghazala/ "Bertha" is partner Level: Independent Do you feel safe in your home environment?: No History of physical, verbal, emotional, or financial abuse?: No ETOH Use: None Substance Use: cannabis (any form) Review of Systems Status of ROS: 10 or more systems reviewed and unremarkable except as noted in history and below Exam Exam Vital Signs: Vital Signs x48h Temp Pulse Pulse Resp BP BP Pulse Ox 02/18/25 13:21 36.5 C 71 14 124/92 H 95 02/18/25 12:38 69 18 130/74 96 02/18/25 11:50 66 18 121/74 97 02/18/25 09:19 36.2 C L 88 18 128/79 97 Gen: Thin appearing. Poor dentition. Well nourished and well developed. No acute distress Heent: Normocephalic/atraumatic, normal appearance of external ears and nose. Chest: L chest port is removed and covered with dressing. Surrounding erythema noted, border marked with pen. Slight tenderness to palpation. No evidence of fluctuance. Cardiac: Regular rate and rhythm. No murmurs appreciated. No visible JVP elevation. Equal radial pulses 2+ Pulm: Normal respirations without increased effort. Clear to auscultation throughout without wheezes, rales or rhonchi. Abdomen: Flat, rounded, nontender. No rebound tenderness or guarding. Extremities: Moves all 4 extremities equally. Normal tone. Neuro: Face symmetric, CN II through XII intact grossly. No focal neurologic deficits. Psych: Mood euthymic with congruent affect. Good fund of knowledge. Judgment intact. Conclusion/Plan Problem List (1) Cellulitis: Plan: Appears c/w skin and soft tissue infection of the L chest at port site. Will r/o CRBSI. Patient was non-septic on arrival, without fever or chills. However will still maintain high suspicion given his immunocompromised status with moderate neutropenia. Port has since been removed. Purulence was noted upon removal and sent for culture. Blood cultures are pending. Will start IV therapy with coverage for MRSA. - Will get MRSA swab which has high negative predictive value. - Start doxycycline 100mg BID - Follow skin and blood cultures - Repeat BMP + CBC in am (2) Leukopenia: (3) Follicular lymphoma: Plan: Found to be neutropenic on admission. Isolated leukopenia, WBC down to 2.1. Could be related to infection or his maintenance rituxumab, which is a B-cell depleting immunotherapy. His oncologist is Dr. Villagran. - Monitor CBC in am to ensure stability Qualifiers: Follicular lymphoma grade: grade I Lymphoma site: multiple regions Q ualified Code(s): C82.08 - Follicular lymphoma grade I, lymph nodes of multiple sites (4) COPD (chronic obstructive pulmonary disease): Plan: Not in acute exacerbation. Well controlled on daily Advair BID and albuterol prn. Current marijuana smoker. Quit tobacco many years ago. - Continue home inhalers I spent a total of 48 minutes in the care of this patient today. This time was spent reviewing labs, vital signs, imaging, interviewing and examining the patient, and discussing plan of care with them and their other care providers. Discussed with general surgery and the emergency department to both were quite concerned about the extent of cellulitis surrounding his port site and the risk for systemic infection. I decided to admit this patient to observation. Will treat him with oral antibiotics and have ordered blood cultures. He is at risk for systemic infection which includes the risk of significant morbidity and mortality. Reviewed his vital signs, CBC, neutrophil count, kidney function, liver function, electrolytes. Decision was further made today to not resuscitate in the event of cardiac . Billing [id number] Lab Results Lab results reviewed: Yes 02/18/25 10:12 02/18/25 11:36
--- NOTE | 2025-02-18 12:20 | CONSULTATION NOTE ---
Referring Provider Name of Referring Provider:: ED (Pawel) Consult Date: 02/18/25 Chief Complaint Chief Complaint Chief Complaint: My port hurts History of Present Illness History of Present Illness HPI Comment/Other: The patient presents to the ED today with a 2-day history of acutely worsened pain at his port site. The patient's port a catheter was placed 6 years ago for lymphoma treatment. He has completed lymphoma treatment, and maintenance chemotherapy. The port remains in place for blood draws per his oncologist's request. He currently follows with [place]. [place] [facility] The patient states that he has always felt "a pokey thing" at the lateral aspect of his port incision. He states this has been more difficult to feel over the last couple days as the port has become increasingly red, swollen, and painful. He has also had some purulent discharge over the weekend. When asked how long he has been having difficulty with the port, he states that it has been painful for at least the last month. He denies any fevers or chills. He does complain of chronic back pain. He complains of sharp pain at the port that radiates out superficially and deep toward his back. He denies any nausea or vomiting and would like something to eat. He is accompanied in the ED by his ex partner and friend, "Bertha" who does not live with the patient. [facility] Active Problems All Active Problems (Updated 02/18/25 @ 12:22 by Franky Anderson MD) Port-A-Cath in place (Acute) Infected venous access port (Acute) Emphysema lung (Chronic) Dental decay (Chronic) Ascending aortic aneurysm (Chronic) Healthcare maintenance (Chronic) Monoclonal gammopathy (Chronic) Follicular lymphoma (Chronic) Medical History Medical History (Updated 02/18/25 @ 12:22 by Franky Anderson MD) Port or reservoir infection Social History Social History (Updated 02/18/25 @ 10:21 by Denise Bernardo RN) Smoking Status: Current every day smoker Living arrangement: At home Marital Status: Domestic Partner Living Condition: With family Support Person: Yes Relationship Notes: Ghazala/ "Bertha" is partner Do you feel safe in your home environment?: Yes History of physical, verbal, emotional, or financial abuse?: No ETOH Use: None Substance Use: cannabis (any form) Meds/Allgy Home Medications Ambulatory Orders Medication Instructions Recorded Confirmed albuterol sulfate 90 mcg/actuation 2 puff inhalation Q 4-6H PRN 02/12/25 aerosol inhaler shortness of breath or wheez ing #8.5 grams fluticasone 250 mcg-salmeterol 50 1 inh inhalation BID #60 ea 02/13/25 mcg/dose blistr powdr for inhalation (Advair Diskus) Allergies Allergies Allergy/AdvReac Type Severity Reaction Status Date / Time No Known Drug Allergies Allergy Verified 11/07/24 15:38 Results Lab Results 02/18/25 10:12 02/18/25 11:36 Other Lab Results: Lab Results x24hrs 02/18/25 02/18/25 Range/Units 11:36 10:12 WBC 2.1 L (4.8-10.8) x10^3/uL RBC 4.52 L (4.70-6.10) 10^6/uL Hgb 14.4 (14.0-18.0) g/dL Hct 43.8 (42.0-52.0) % MCV 96.9 H (80.0-94.0) fL MCH 31.9 H (27.0-31.0) pg MCHC 32.9 (32.0-36.0) g/dL RDW 12.1 (12.0-15.0) % Plt Count 232 (130-450) 10^3/uL MPV 9.3 (7.4-11.4) fL Neut # (Auto) Not Reportable Lymph # (Auto) Not Reportable [place] # (Auto) Not Reportable Eos # (Auto) Not Reportable Baso # (Auto) Not Reportable Absolute Nucleated RBC Not Reportable Total Counted 100 Band Neuts % (Manual) 3 (0 - 10) % Abnorm Lymph % (Manual) 0 % Nucleated RBC % Not Reportable Neutrophils # (Manual) 0.8 L (1.5-6.6) 10^3/uL Lymphocytes # (Manual) 0.7 L (1.5-3.5) 10^3/uL Monocytes # (Manual) 0.5 (0.0-1.0) 10^3/uL Eosinophils # (Manual) 0.1 (0-0.7) 10^3/uL Basophils # (Manual) 0.0 (0-0.1) 10^3/uL Differential Comment MANUAL DIFFERENTIAL WBC Morphology NORMAL APPEARANCE (NORMAL) Platelet Estimate NORMAL (130-450,000) (NORMAL) Platelet Morphology NORMAL APPEARANCE (NORMAL) RBC Morph Micro Appear NORMAL APPEARANCE (NORMAL) Sodium 139 (135-145) mmol/L Potassium 3.8 (3.5-4.5) mmol/L Chloride 101 (101-111) mmol/L Carbon Dioxide 28 (21-32) mmol/L Anion Gap 10.0 (6-13) BUN 15 (6-20) mg/dL Creatinine 0.6 (0.6-1.3) mg/dL Estimated GFR (MDRD) 130 (>89) Glucose 105 H (74-104) mg/dL Calcium 9.2 (8.5-10.3) mg/dL Total Bilirubin 0.5 (0.2-1.0) mg/dL AST 17 (10-42) IU/L ALT 19 (10-60) IU/L Alkaline Phosphatase 69 (42-121) IU/L Total Protein 8.1 (6.4-8.9) g/dL Albumin 4.1 (3.2-5.5) g/dL Globulin 4.0 (2.1-4.2) g/dL Albumin/Globulin Ratio 1.0 (1.0-2.2) Lipase 28 (11-82) U/L Other Other Results/Comments: Blood cx ordered Review of Systems Status of ROS: 10 or more systems reviewed and unremarkable except as noted in history and below Exam Exam Vital Signs: Vital Signs x48h Temp Pulse Resp BP Pulse Ox 02/18/25 11:50 66 18 121/74 97 02/18/25 09:19 97.2 F L 88 18 128/79 97 GEN: Moderate distress due to pain, appears stated age, alert and oriented HEENT: NCAT, MMM, EOMI, portacatheter is grossly infected with 10 x 15 cm of surrounding erythema and edema. There is a small opening superior to the port that is draining purulent fluid. The entire area is exquisitely tender to palpation. NEURO: CN II-XII grossly intact, no obvious focal deficits, poor historian CV: RRR PULM: Nonlabored, on room air ABD: soft, scaphoid abdomen, non tender, no rebound or guarding CIRCULATORY: no clubbing, cyanosis, or edema SKIN: no lesions appreciated, except as listed above LYMPH: no obvious lymphadenopathy MSK: 4/4 strength in all extremities PSYCH: Affect is appropriate Conclusion/Plan Problem List (1) Infected venous access port: Qualifiers: Encounter type: initial encounter Qualified Code(s): T80.219A - Unspecified infection due to central venous catheter, initial encounter (2) Port-A-Cath in place: Plan This is an 80-year-old gentleman with: 1. infected portacatheter - I removed the port in the ED today (documented separately) - wet to dry gauze wick in place, with Mepilex dressing. Change dressing daily and irrigate with NS. - cultures of wound, blood, and catheter tip have been ordered (wound cx and catheter taken to lab) - The patient has been dealing with this infection at home for an indeterminate period of time. I am concerned that he may not return to the hospital if called with positive blood cultures, and recommend that he receive at least one dose of IV antibiotics prior to discharge. - ED reaching out to Dr. Villagran of med onc for recommendations regarding possible admission - patient appears to have completed cancer treatment and port is no longer explicitly needed. If new port requested, would need to prove infection has cleared first. - leukopenic, afebrile 2. h/o lymphoma, COPD - as per primary team(s) Thank you for consulting me in the care of this patient. General surgery will continue to follow while patient in house. f/u with general surgery as outpatient, prn. Lab Results 02/18/25 10:12 02/18/25 11:36
--- NOTE | 2025-02-18 12:35 | OPERATIVE REPORT ---
Operative Report General Admit Date: 02/18/25 Procedure Data: Procedure: removal of infected portacatheter, Left subclavian position Pre-Op Diagnosis: infected portacatheter Post Op Diagnosis: infected portacatheter Procedure Note Estimated Blood Loss (ml): 5 Pathology: 1. wound cultured 2. port tip sent for culture Indications: Patient has had increasing pain, redness, swelling around his port for the last 2-4 weeks. Pain has acutely worsened for the last two days. He comes to the ED where jeaneth infection is identified, and I am consulted. I discussed the risks, benefits, and alternatives of removal of the port with the patient and his support person. Risks include but are not limited to bleeding, worsening infection, and possible need for further surgery or procedures. The benefit is removal of foreign body from area of infection allowing for source control. The patient voiced understanding, his questions were answered, and he wished to proceed. A consent was signed by the patient prior to the procedure. Findings: 1. Infected port, removed intact, sent for culture 2. wound cultures sent 3. would irrigated, left open to heal by secondary intention Complications: none Other Other Information/Narrative: The procedure was performed in the emergency department. The patient was placed in the supine position. A preop surgical timeout was performed. The patient was prepped and draped in the usual, sterile fashion. Next, 1% lidocaine was used to anesthetize the skin and subcutaneous tissues at the patient's previous incision overlying his portacatheter. This took significantly more local than normal, likely due to the infection in the area. Next, a 15 blade scalpel was used to open the prior incision and a hemostat was used to spread the tissues down to the level of the portacatheter. The portacatheter was freed from the surrounding tissues with blunt dissection, and both stay sutures were removed. Once free, the port itself was removed and digital pressure was held at the clavicle where the catheter entered the subclavian vein. The catheter was then removed and noted to be completely intact. Pressure was held at the clavicle for approximately 5 minutes. The wound was cultured, and the portacatheter was also sent for culture. Excellent hemostasis was confirmed. Next, the wound was irrigated with 30 mL normal saline. A wet-to-dry gauze was placed with the wound to wick the wound. A sterile dressing was placed over the wound. The wound will not be closed, and instead allowed to heal by secondary intention due to the infection. The patient tolerated the procedure well. There were no complications.
[2025-02-18] MEDS ORDERED: SODIUM CHLORIDE FLUSH 0.9% 10 ML SYRINGE IVP PRN ×2 (13:34)
[2025-02-18] MEDS ORDERED: ONDANSETRON ODT 4 MG TABLET TL PRN (13:34)
[2025-02-18] MEDS ORDERED: ONDANSETRON 4 MG/2 ML VIAL IVP PRN (13:34)
[2025-02-18] MEDS ORDERED: ACETAMINOPHEN 325 MG TABLET PO PRN (13:34)
[2025-02-18] MEDS ORDERED: ALBUTEROL NEB 2.5 MG/3 ML INH PRN (14:21)
[2025-02-18] MEDS: DOXYCYCLINE 100 MG TABLET PO SCH (14:43)
--- NOTE | 2025-02-18 15:05 | PHARMACY PROGRESS NOTE ---
Best Possible Medication History Admit Date and Time: 02/18/25 [id number] Home Medications Medication Instructions Recorded Confirmed Type albuterol sulfate 90 mcg/actuation 2 puff inhalation Q 4-6H PRN 02/12/25 02/18/25 Rx aerosol inhaler shortness of breath or wheez ing #8.5 grams fluticasone 250 mcg-salmeterol 50 1 inh inhalation BID #60 ea 02/13/25 02/18/25 Rx mcg/dose blistr powdr for inhalation (Advair Diskus) ibuprofen 200 mg tablet (Advil) 200 mg PO TID PRN pain 02/18/25 02/18/25 History Processed by: Pharmacy Medications reviewed in ED?: Yes Medication History completed: Yes Patient Interview: Completed Secondary Source(s): Insurance records [facility] Statement: As the person ultimately responsible for medication therapy, providers are able to order a medication from an existing home medication list in [facility] via the "Reconcile Routine" prior to Confirmation of that medication by technical support intern. Such practice is discouraged except when the physician, in their clinical judgment, deems that a medical need exists for a medication without regard to previous use.
[2025-02-18] MEDS ORDERED: SODIUM CHLORIDE FLUSH 0.9% 10 ML SYRINGE IVP SCH (17:00)
[2025-02-18] MEDS: ACETAMINOPHEN 325 MG TABLET PO PRN (17:20)
[2025-02-18] MEDS: FORMOTEROL FUMARATE NEB 20 MCG/2 ML INH SCH (18:16)
[2025-02-18] MEDS: BUDESONIDE 0.5 MG/2 ML NEB INH SCH (18:16)
[2025-02-18] MEDS: SODIUM CHLORIDE FLUSH 0.9% 10 ML SYRINGE IVP SCH (21:15)
[2025-02-19] MEDS: oxyCODONE 5 MG TABLET PO PRN ×2 (04:17→11:54)
[2025-02-19 05:02] LABS: HCT - HEMATOCRIT 39.6 % (42.0-52.0); HGB - HEMOGLOBIN 13.0 g/dL (14.0-18.0); MEAN PLATELET VOLUME 9.2 fL (7.4-11.4); NRBC ABSOLUTE COUNT (AUTO) 0.00 x10^3/uL; NUCLEATED RED BLOOD CELLS AUTO 0.0 /100WBC; PLT - PLATELET COUNT 233 10^3/uL (130-450); RED CELL DISTRIBUTION WIDTH 12.0 % (12.0-15.0)
[2025-02-19 05:26] LABS: BUN - BLOOD UREA NITROGEN 12.0 mg/dL (6-20); CARBON DIOXIDE - CO2 26.0 mmol/L (21-32); CREATININE 0.5 mg/dL (0.6-1.3); GFR - MDRD 160.0 (>89)
[2025-02-19 05:43] LABS: PLATELET ESTIMATE, MANUAL NORMAL (130-450,000) (NORMAL); PLATELET MORPHOLOGY NORMAL APPEARANCE (NORMAL); RBC MORPHOLOGY (MULTIPLE) NORMAL APPEARANCE (NORMAL); WBC MORPHOLOGY (MULTIPLE) NORMAL APPEARANCE (NORMAL)
--- NOTE | 2025-02-19 10:26 | Discharge Summary ---
"Discharge Summary Admit Date: 02/18/25 Discharge Date: 02/20/25 Discharging Provider: Kayleigh Mejia MD Code Status: Do Not Attempt Resuscitation Discharge Facility Name: Home DIAGNOSES Discharge Diagnoses with Status of Each Condition: #Infected venous access port, cellulitis At L chest port site. Continued purulence and tenderness of skin around removed port site is noted on exam this morning per Surgery. Port tip culture is positive for MSSA. MRSA nares was negative, and patient remains non-septic and afebrile. Blood cultures negative growth to date for 2 days. Unlikely endocarditis, but TTE is obtained to r/o any valvular abnormalities. - Continue Bactrim BID for total 10 day treatment. #Leukopenia - stable #Follicular lymphoma #COPD - stable HPI History of Present Illness: Per MS4 student Kavita: Omari Langford is a 80 y/o male with history of follicular lymphoma s/p chemotherapy on maintenance rituximab and COPD, who is admitted for a suspected skin soft tissue infection at his L port site. He arrived to the ED for bleeding and pain around his Port site. Had the Port placed many years ago for treatment of his lymphoma. Had first noticed pain 3 weeks ago, but did not seek treatment. Has not received any antibiotics. Patient reports some relief of pain since the removal of port this morning. Denies any fevers or chills. No headaches, vision changes. No nausea or vomiting. He has otherwise been well without any cough, dyspnea. No chest pain or palpitations. He does endorse chronic low back/ sciatica pain that is not new. He has a few metal screws in his R ankle from many years back. Denies any other hardware or prosthetics. He is accompanied by his Ghazala, who he would like to name his POA. They would like to fill out a POLST form. Opts for DNR/DNI. He denies any alcohol use. Former tobacco smoker of many years. Everyday marijuana smoker. CONSULTS | PROCEDURES Consultations: General surgery Procedures: 02/18/2025 Wound care Skin and port tip cultures Blood cultures 02/19/2025 TTE HOSPITAL COURSE Hospital Course: Patient presented to the ED 02/18 for increased bleeding and pain around his L chest port site. Patient had this port in for years for treatment of his follicular lymphoma, which he has since been in remission and receiving maintenance immunotherapy. Other than occasional access for blood draws, the port had not been regularly used. Has his port flushed every 3 months. Purulence and induration was noted on removal of his port in the ED. Warmth, erythema and tenderness around port site on exam. He was non-septic on arrival and remained afebrile with stable vital signs throughout course of stay. Port tip and skin sent for culture returned positive for MSSA. Blood cultures obtained was negative to growth after 2 days. He received one day of IV antibiotics. He was started on Bactrim to continue a 10 day course. Labs were notable for leukopenia, likely attributable to infection. This remained stable on repeat draw and he remained vitally stable overnight. TTE was obtained, with preliminary read reassuring without signs of endocarditis. Daily wound care instructions were provided and wound follow-up with Dr. Anderson or his PCP was advised. An appointment was made for him on 02/26 with his PCP. He was advised of all warning signs that would prompt an immediate return to ED. All of the above was also explained to his who was present at bedside. ALLERGIES Allergies Allergy/AdvReac Type Severity Reaction Status Date / Time No Known Drug Allergies Allergy Verified 11/07/24 15:38 MEDICATIONS Ambulatory Orders Medication Instructions Recorded Confirmed albuterol sulfate 90 mcg/actuation 2 puff inhalation Q 4-6H PRN 02/12/25 02/18/25 aerosol inhaler shortness of breath or wheez ing #8.5 grams fluticasone 250 mcg-salmeterol 50 1 inh inhalation BID #60 ea 02/13/25 02/18/25 mcg/dose blistr powdr for inhalation (Advair Diskus) ibuprofen 200 mg tablet (Advil) 200 mg PO TID PRN pain 02/18/25 02/18/25 sulfamethoxazole 800 1 tab PO BID 9 days #18 tabs 02/20/25 mg-trimethoprim 160 mg tablet (Bactrim DS) PHYSICAL EXAM AT DISCHARGE Vital Signs: Vital Signs x48h Temp Resp BP Pulse Ox 02/20/25 08:52 97.7 F 18 136/78 H 95 Physical Exam Other/Comments: Gen: Thin appearing. Poor dentition. Otherwise well developed and in no acute distress Heent: Normocephalic/atraumatic, normal appearance of external ears and nose. Chest: L chest port is removed and covered with dressing. Surrounding erythema is not enlarged, without fluctuance or induration. Tenderness improved. Cardiac: Regular rate and rhythm without murmurs. Equal radial pulses 2+ Pulm: Normal respirations without increased effort. Clear to auscultation. Abdomen: Flat, soft, nontender. Extremities: Moves all 4 extremities equally. Normal tone. Neuro: Face symmetric. No focal neurologic deficits. Psych: Mood euthymic with congruent affect. Good fund of knowledge. Judgment intact. LABS 02/20/25 04:41 02/20/25 04:41 QUALITY (Female Hip Fx Only) Was patient sent home on osteoporosis medication?: No FOLLOW UP Follow Up: Wound check with Surgery, Dr. Anderson Follow up with PCP Oncology, Dr. Villagran TIME SPENT Time Spent in Discharge (Minutes): 35 Discharge Plan Discharge Patient Disposition: Home, Self Care Condition: Stable Prescriptions: New sulfamethoxazole-trimethoprim [Bactrim DS] 800-160 mg tablet 1 tab PO BID 9 Days Qty: 18 0RF Continued albuterol sulfate 90 mcg/actuation HFA aerosol inhaler 2 puff inhalation Q4-6H PRN (Reason: shortness of breath or wheezing) Qty: 8.5 2RF fluticasone propion-salmeterol [Advair Diskus] 250-50 mcg/dose blister with device 1 inh inhalation BID Qty: 60 2RF ibuprofen [Advil] 200 mg tablet 200 mg PO TID PRN (Reason: pain) Activity Restrictions: Activity as Tolerated Diet: Regular Health Concerns: You had your mediport (a type of implanted device used for IV access) removed because it was infected. These instructions will help you recover safely and reduce the risk of further infection. Wound Care - Keep the wound clean and dry. Change the dressing as instructed, once daily or if it becomes wet or soiled. - If hydrogel was used for wound packing, healing may be faster and require fewer clinic visits than traditional gauze. - Do not submerge the wound in water (no swimming or soaking). Showering is allowed if the wound is protected with a waterproof cover. - Watch for signs of infection: increased redness, swelling, warmth, pain, pus, or fever. If these occur, contact your healthcare provider promptly. Medications - Continue taking antibiotics as prescribed. This will be the Bactrim which you will continue for 9 additional days. - Take all medications exactly as directed, even if you feel better. Follow-Up - Attend all scheduled follow-up appointments. Your provider may want to check the wound and review your progress. - If cultures were taken from the port or wound, your antibiotic may be changed based on those results. - We have set up an appointment for you to follow up with your PCP Dr. Oglesby in [place] for 02/26 at 1300 (12:45 check in time). Please also follow up with the surgeon, Dr. Anderson in a week to check the wound site. I have attached her number in your chart. - We completed an echocardiogram while you were here; preliminary reports do not suggest any endocarditis, or any infection of the valves, but we are still awaiting final report. If there is anything concerning, I will give you a call. General Precautions - Avoid heavy lifting or strenuous activity until cleared by your provider. - Report any new symptoms, such as fever, chills, or worsening pain, immediately. - If you need another port or IV access in the future, discuss infection prevention strategies with your provider. When to Seek Immediate Help - Fever above 101F (38.3C) - Chills or shaking - Severe pain, redness, or swelling at the wound site - Pus or foul-smelling drainage from the wound - Feeling very unwell or weak Print Language: Mauritanian Patient Instructions: Central Line Infections Stand Alone Forms: PCP List Follow-up Care: Tara Oglesby MD [Provider Admit Priv/Credential, Family Practice] - 02/26/25 Franky Anderson MD [Provider Admit Priv/Credential, Surgery, General] - 02/25/25 Vitals documented within 30 minutes of discharge?: Yes"
--- NOTE | 2025-02-19 12:47 | PROVIDER PROGRESS NOTE ---
Subjective General Admit Date: 02/18/25 Procedure Date: 09/28/21 Post Op Days: 1240 Other Other Information/Narrative: Patient with multiple complaints today including not having the full phone number for his room on the board, wanting to leave, wanting to know what his results are, and being in pain. He complains mostly of back pain unless his prior port site is touched. He denies fevers or chills. Review of Systems Status of ROS: 10 or more systems reviewed and unremarkable except as noted in history and below Exam Exam Vital Signs: Vital Signs x48h Pulse Resp 02/19/25 07:44 64 20 GEN: Generally agitated, appears stated age, alert and oriented to person and place HEENT: NCAT, MMM, EOMI, portacatheter is grossly infected with 10 x 15 cm of surrounding erythema and edema, very slightly improved from yesterday. Port site left open after removal, with continued purulent discharge, still very tender to palpation. CV: RRR PULM: Nonlabored, on room air ABD: soft, scaphoid abdomen, non tender, no rebound or guarding CIRCULATORY: no clubbing, cyanosis, or edema Impression/Plan Problem List (1) Cellulitis: (2) Leukopenia: (3) Follicular lymphoma: Qualifiers: Follicular lymphoma grade: grade I Lymphoma site: multiple regions Qualified Code(s): C82.08 - Follicular lymphoma grade I, lymph nodes of multiple sites (4) COPD (chronic obstructive pulmonary disease): Plan This is an 80-year-old gentleman with: 1. infected portacatheter - I removed the port in the ED 02/18 (documented separately) - wet to dry gauze wick in place, with Mepilex dressing. Dressing irrigated and changed. Patient tolerated this with complaint that it was too painful. Bertha was present in the room and is unsure if she would be able to help with dressing changes after discharge. - cultures of wound and catheter tip growing S aureus (likely MSSA as MRSA nasal swab negative). Blood cx with NGTD (1d) - The patient has been dealing with this infection at home for an indeterminate period of time. I continue to be concerned that he may not return to the hospital if called with positive blood cultures, and recommend that he stay in the hospital until the ideal oral antibiotic regimen for treatment of his infection is determined via cx results (including blood cx). - leukopenic (slightly improved), afebrile 2. h/o lymphoma, COPD - as per primary medicine team General surgery will continue to follow while patient in house. f/u with general surgery as outpatient, prn (if wound care otherwise arranged, otherwise he can f/u with me in one week for wound recheck).
[2025-02-19] MEDS: VANCOMYCIN INJ 1 GM, VANCOMYCIN INJ 250 MG in SODIUM CHLORIDE 0.9% 250 ML IV ONE (16:47)
--- NOTE | 2025-02-19 16:53 | PROVIDER PROGRESS NOTE ---
Subjective Subjective Subjective: Patient states that he feels better today. He does have pain at the site of his Mediport removal. Had significant pain with dressing change earlier today. He also has some back pain. Current Medications Current Medications Current Medications: Current Medications Generic Name Dose Route Start Last Admin Trade Name Freq PRN Reason Stop Dose Admin Acetaminophen 650 mg 02/18/25 12:57 02/18/25 17:20 Acetaminophen 325 Mg Tablet PO 650 mg Q4HR PRN Administration Pain or Fever > 38C (100.4F) Albuterol 2.5 mg 02/18/25 14:21 Albuterol Neb 2.5 Mg/3 Ml INH RTQ4H PRN Wheezing Budesonide 0.5 mg 02/18/25 19:00 02/19/25 07:39 Budesonide 0.5 Mg/2 Ml Neb INH 0.5 mg RTBID MAURY Administration Formoterol Fumarate 20 mcg 02/18/25 19:00 02/19/25 07:38 Formoterol Fumarate Neb 20 Mcg/2 Ml INH 20 mcg RTBID MAURY Administration Vancomycin HCl 1 gm/ 250 mls @ 167 mls/hr 02/20/25 17:00 Vancomycin HCl 250 mg/ Sodium IV Chloride Q24H MAURY Ibuprofen 400 mg 02/19/25 11:57 Ibuprofen 400 Mg Tablet PO Q6HR PRN Moderate Pain (Level 4-6) Ondansetron HCl 4 mg 02/18/25 13:34 Ondansetron Odt 4 Mg Tablet TL Q6HR PRN Nausea / Vomiting Ondansetron HCl 4 mg 02/18/25 13:34 Ondansetron 4 Mg/2 Ml Vial IVP Q6HR PRN Nausea / Vomiting Oxycodone HCl 10 mg 02/18/25 13:34 02/19/25 11:54 Oxycodone 5 Mg Tablet PO 10 mg Q4HR PRN Administration Pain 7 to 10 Sodium Chloride 10 ml 02/18/25 13:34 Sodium Chloride Flush 0.9% 10 Ml Syringe IVP PRN PRN NEEDED PER PROVIDER ORDERS Sodium Chloride 10 ml 02/18/25 17:00 02/19/25 16:48 Sodium Chloride Flush 0.9% 10 Ml Syringe IVP 10 ml 0100,0900,1700 MAURY Administration Objective Vital Signs/Intake & Output Reviewed Vital Signs: Yes Vital Signs: Vital Signs x48h Temp Pulse Resp BP Pulse Ox 11/04/25 14:40 98.1 F 68 18 131/73 H 95 Intake & Output: Intake & Output 02/16/25 02/17/25 02/18/25 02/19/25 23:59 22:59 23:59 23:59 Intake Total 525 / 525 Balance 525 / 525 Weight (kg) 63 kg Objective General Appearance: positive No acute distress and Alert; negative Anxious Eyes Bilateral: positive Normal inspection, PERRL and EOMI ENT: positive ENT inspection nml, Pharynx nml and No signs of dehydration Neck: positive Nml inspection, Thyroid nml and No JVD Respiratory: positive Chest non-tender, No respiratory distress, Breath sounds nml and Other (Mediport site with some erythema noted around site within marked borders ); negative Wheezes, Rales or Rhonchi Cardiovascular: positive Regular rate & rhythm, No murmur and No gallop; negative Tachycardia or Systolic murmur Abdomen: positive Non-tender, No organomegaly and No distention; negative Guarding or Splenomegaly Back: positive Nml inspection; negative CVA tenderness (R) or CVA tenderness (L) Skin: positive Color nml, No rash, Warm and Dry Extremities: positive Non-tender, Full ROM, Nml appearance and No pedal edema Neurologic/Psychiatric: positive Oriented x3, Motor nml and Mood/affect nml Lab Results 02/19/25 04:31 02/19/25 04:31 Other Labs: Lab Results x24hrs 02/19/25 02/18/25 Range/Units 04:31 14:44 WBC 2.8 L (4.8-10.8) x10^3/uL RBC 4.08 L (4.70-6.10) 10^6/uL Hgb 13.0 L (14.0-18.0) g/dL Hct 39.6 L (42.0-52.0) % MCV 97.1 H (80.0-94.0) fL MCH 31.9 H (27.0-31.0) pg MCHC 32.8 (32.0-36.0) g/dL RDW 12.0 (12.0-15.0) % Plt Count 233 (130-450) 10^3/uL MPV 9.2 (7.4-11.4) fL Neut # (Auto) 1.0 L (1.5-6.6) 10^3/uL Lymph # (Auto) 0.9 L (1.5-3.5) 10^3/uL [place] # (Auto) 0.6 (0.0-1.0) 10^3/uL Eos # (Auto) 0.1 (0.0-0.7) 10^3/uL Baso # (Auto) 0.0 (0.0-0.1) 10^3/uL Absolute Nucleated RBC 0.00 x10^3/uL Band Neuts % (Manual) Not Reportable Abnorm Lymph % (Manual) Not Reportable Nucleated RBC % 0.0 /100WBC Neutrophils # (Manual) Not Reportable Lymphocytes # (Manual) Not Reportable Monocytes # (Manual) Not Reportable Eosinophils # (Manual) Not Reportable Basophils # (Manual) Not Reportable Differential Comment MANUAL=AUTO DIFF WBC Morphology NORMAL APPEARANCE (NORMAL) Platelet Estimate NORMAL (130-450,000) (NORMAL) Platelet Morphology NORMAL APPEARANCE (NORMAL) RBC Morph Micro Appear NORMAL APPEARANCE (NORMAL) Sodium 138 (135-145) mmol/L Potassium 4.0 (3.5-4.5) mmol/L Chloride 105 (101-111) mmol/L Carbon Dioxide 26 (21-32) mmol/L Anion Gap 7.0 (6-13) BUN 12 (6-20) mg/dL Creatinine 0.5 L (0.6-1.3) mg/dL Estimated GFR (MDRD) 160 (>89) Glucose 114 H (74-104) mg/dL Calcium 8.9 (8.5-10.3) mg/dL Nasal Screen MRSA (PCR) NEGATIVE (NEGATIVE) Assessment/Plan Problem List (1) Infected venous access port: Qualifiers: Encounter type: initial encounter Qualified Code(s): T80.219A - Unspecified infection due to central venous catheter, initial encounter (2) Cellulitis: Qualifiers: Site of cellulitis: unspecified site Qualified Code(s): L03.90 - Cellulitis, unspecified (3) Leukopenia: Impression: The following is for the above three diagnoses: Patient presented with infected Mediport, surrounding erythema and irritation. General surgery pulled it in the emergency room, the resulting pocket was highly purulent with granulation tissue. Preliminary report from tip culture suggest Staphylococcus aureus. Susceptibilities are pending. Leukopenia has slightly improved. Neutrophils are low, but now reportable. Remains afebrile. Will start IV vancomycin at this time. Due to extent of infection, we will wait until final speciation with susceptibilities of Staphylococcus aureus before de-escalating to oral antibiotics. Anticipate tomorrow. Echo has been ordered, final read is pending. General surgery following. Qualifiers: Leukopenia type: unspecified Qualified Code(s): D72.819 - Decreased white blood cell count, unspecified (4) Follicular lymphoma: Impression: In remission, per patient. Last oncology note from 01/23/2025. Patient is in active surveillance. Qualifiers: Follicular lymphoma grade: grade I Lymphoma site: multiple regions Q ualified Code(s): C82.08 - Follicular lymphoma grade I, lymph nodes of multiple sites (5) COPD (chronic obstructive pulmonary disease): Impression: Not an active exacerbation at this time. Continue to monitor. Qualifiers: Emphysema type: unspecified COPD type: emphysema Qualified Code(s): J 43.9 - Emphysema, unspecified
[2025-02-19] MEDS: IBUPROFEN 400 MG TABLET PO PRN (17:51)
[2025-02-20 04:59] LABS: HCT - HEMATOCRIT 37.6 % (42.0-52.0); HGB - HEMOGLOBIN 12.7 g/dL (14.0-18.0); MEAN PLATELET VOLUME 9.0 fL (7.4-11.4); PLT - PLATELET COUNT 233.0 10^3/uL (130-450); RED CELL DISTRIBUTION WIDTH 11.9 % (12.0-15.0)
[2025-02-20 05:18] LABS: BUN - BLOOD UREA NITROGEN 14.0 mg/dL (6-20); CARBON DIOXIDE - CO2 25.0 mmol/L (21-32); CREATININE 0.5 mg/dL (0.6-1.3); GFR - MDRD 160.0 (>89)
[2025-02-20 08:54] VITALS: BP 136/78; TEMP 97.7; O2SAT 95
[2025-02-20] MEDS ORDERED: VANCOMYCIN INJ 1 GM, VANCOMYCIN INJ 250 MG in SODIUM CHLORIDE 0.9% 250 ML IV SCH (17:00)
--- NOTE | 2025-02-21 09:38 | ECHO Report ---
Version: 1 Study ID: [id number] Adult Echocardiogram Report Name: JESUS NUNEZ Study Date: 02/19/2025, 1: 25 PM BP: 128 / 77 mmHg Patient Location: [id number] HR: 70 bpm : 1945 (MM/DD/YYYY) Gender: Male Height: 74 in Age: 80 Years Weight: 138.891 lb BSA: 1.86 m² Reason For Study: endocarditis History: Infected port a catheter s/p removal 02/18 - concern for endocarditis Previous echo 10/19/2023 (LV EF 55-60, asc ao 4.7 cm, mild aortic stenosis mean PG 21 mmHg) Interpretation Summary There is mild concentric increase in the wall thickness of the left ventricle. Global left ventricular systolic function is normal. The visual left ventricular ejection fraction is estimated at 55 to 60%. The overall diastolic pattern is most consistent with impaired left ventricular relaxation with low to normal filling pressures. The right ventricle is borderline dilated. The right ventricular systolic function is normal. There is moderate valvular aortic stenosis. The aortic valve peak velocity is 330 cm/sec. The aortic valve mean pressure gradient is 24 mmHg. The ascending aorta is moderately dilated. The diameter of the ascending aorta is 4.7 cm. The aorta at the level of the sinuses of Valsalva is mildly dilated. The aorta at the sinus of Valsalva measures 4.2cm. Vegetation not seen consider RULA if clinically indicared. Left Ventricle: The left ventricle is normal in size. There is mild concentric increase in the wall thickness of the left ventricle. Global left ventricular systolic function is normal. The visual left ventricular ejection fraction is estimated at 55 to 60%. No regional wall motion abnormalities are present. The overall diastolic pattern is most consistent with impaired left ventricular relaxation with low to normal filling pressures. Right Ventricle: The right ventricle is borderline dilated. The right ventricular systolic function is normal. Aortic Valve: The aortic valve is trileaflet. The aortic valve is moderately calcified. Cannot exclude aortic valve vegetation. There is moderate valvular aortic stenosis. The aortic valve mean pressure gradient is 24 mmHg. The aortic valve maximum pressure gradient is 43 mmHg. The aortic valve peak velocity is 330 cm/sec. Trace aortic regurgitation is present. Mitral Valve: The mitral valve leaflets appear thickened, but with normal motion. There is no mitral valve vegetation. No evidence of mitral stenosis is seen. There is trace mitral regurgitation. Tricuspid Valve: The tricuspid valve is normal in structure and function. There is no tricuspid valve vegetation. Mild tricuspid regurgitation present. Pulmonic Valve: The pulmonic valve is normal in structure and function. There is no pulmonic valve vegetation. Trace pulmonic valvular regurgitation is present. Left Atrium: Left atrial enlargement. Right Atrium: The right atrium is moderately dilated. The inferior vena cava is normal in diameter (<2.1cm) and there is complete collapse with inspiration (estimated right atrial pressure 0-5mmHg). Atrial Septum: Lipomatous hypertrophy of the interatrial septum is present. Aorta: The ascending aorta is moderately dilated. The diameter of the ascending aorta is 4.7 cm. The aorta at the level of the sinuses of Valsalva is mildly dilated. The aorta at the sinus of Valsalva measures 4.2cm. Pulmonary Artery: The pulmonary artery systolic pressure, calculated from a peak tricuspid regurgitant velocity in conjunction with an estimated right atrial pressure, is 31 - 36mmHg. Pericardium/Pleural Space: There is no pericardial effusion. Left Ventricle IVSd: 1.08 cm LVIDd: 4.0 cm LVPWd: 1.07 cm LVIDs: 2.7 cm Diastolic Function MV dec time: 0.22 sec MV E max clarissa: 50.4 cm/sec MV A max clarissa: 56.2 cm/sec Aortic Valve LV V1 mean P.47 mmHg LV V1 mean: 74.9 cm/sec LV V1 VTI: 20.4 cm Ao V2 VTI: 64.7 cm Ao mean P.1 mmHg Ao V2 mean: 234.4 cm/sec LV V1 max: 100.7 cm/sec LV V1 max P.1 mmHg Ao max P.2 mmHg Ao V2 max: 328.8 cm/sec Tricuspid Valve TR max P.6 mmHg TR max clarissa: 276.6 cm/sec TV max P.6 mmHg Aorta Ao root diam: 4.2 cm MMode/2D Measurements & Calculations Ao root diam: 4.2 cm BMI: 17.8 kilograms/m² BSA(Haycock): 1.80 m² EF (est.): 61.2 % IVSd: 1.08 cm LVIDd: 4.0 cm LVIDs: 2.7 cm LVPWd: 1.07 cm Doppler Measurements & Calculations Ao max P.2 mmHg Ao mean P.1 mmHg Ao V2 max: 328.8 cm/sec Ao V2 mean: 234.4 cm/sec Ao V2 VTI: 64.7 cm LV V1 max: 100.7 cm/sec LV V1 max P.1 mmHg LV V1 mean: 74.9 cm/sec LV V1 mean P.47 mmHg LV V1 VTI: 20.4 cm MV A max clarissa: 56.2 cm/sec MV dec time: 0.22 sec MV DVI-pr: 0.90 MV E max clarissa: 50.4 cm/sec PA max P.26 mmHg PA V2 max: 75.2 cm/sec RAP systole: 5.0 mmHg TR max P.6 mmHg TR max clarissa: 276.6 cm/sec TV max P.6 mmHg Other Measurements & Calculations Ao root area: 13.9 cm² EDV(Teich): 68.5 ml EF(sp-el): 50.0 % EF(Teich): 61.2 % ESV(Teich): 26.6 ml FS: 32.3 % MV E/A: 0.90 RVSP(TR): 35.6 mmHg Procedure Notes: A complete two-dimensional transthoracic echocardiogram was performed (2D, M- mode, Doppler and color flow Doppler). Indication: Evaluate for endocarditis. The study was done with the patient sitting upright, due to inability to lie flat. The underlying rhythm was sinus. CPT Codes: 80649/[id number]: Transthoracic Echo with Spectral and Color Doppler. MD Pepper Lino 02/21/2025, 9: 38 AM Ordering Physician: Kayleigh Mejia Referring Physician: Katty Armas Performed By: Jenniffer Pinedo RDCS
== END 2025-02-20 09:00 | disposition home or self-care (01) | DRG 315 ==
LOC: MS3 09:13 → ED 09:13 → MS3 13:00
PROVIDERS: ADMIT Student in an Organized Health Care Education/Training Program; ATTEND Internal Medicine
DX: Z92.21 Personal history of antineoplastic chemotherapy; M54.40 Lumbago with sciatica, unspecified side; J43.9 Emphysema, unspecified; F12.90 Cannabis use, unspecified, uncomplicated; J44.9 Chronic obstructive pulmonary disease, unspecified; Z79.620 Long term (current) use of immunosuppressive biologic; L03.313 Cellulitis of chest wall; D70.9 Neutropenia, unspecified; Z79.899 Other long term (current) drug therapy; B95.61 Methicillin susceptible Staphylococcus aureus infection as the cause of diseases classified elsewhere; T80.212A Local infection due to central venous catheter, initial encounter; Z87.891 Personal history of nicotine dependence; C82 Follicular lymphoma; Y83.8 Other surgical procedures as the cause of abnormal reaction of the patient, or of later complication, without mention of misadventure at the time of the procedure; Z66 Do not resuscitate; D84.9 Immunodeficiency, unspecified